=== PATIENT | male | born 1985 | race Caucasian/White ===

== ENCOUNTER 2023-01-26 13:59 | Inpatient (IN) | payer SELFPAY ==
[2023-01-26] VITALS (18 sets, daily range): BP systolic 92–127; BP diastolic 58–89; PULSE 76–91; RESP 16–20; TEMP 36.6–36.9; O2SAT 93–100; BMI 41.5; BMI 29.8; BMI 27.9
--- NOTE | 2023-01-26 13:29 | IR_ITS ---
APPROVED REPORT Patient Location: [facility]gent [facility] Layer: GABRIEL Parson RT (R) PROCEDURES Left heart catheterization Left ventriculogram Selective coronary angiogram Mechanical thrombectomy to the proximal dominant right coronary Drug-eluting stent deployment to the proximal dominant right coronary INDICATION Acute inferior lateral right ventricular ST elevation myocardial infarction, Coronary artery disease Informed consent was obtained prior to the procedure. COMPLICATIONS None Estimated Blood Loss: Less than 10 mls TECHNIQUE One percent lidocaine used to anesthetize the right anterior aspect of the wrist. The right radial artery was accessed via the Seldinger technique. An arterial cocktail using magnesium nitroglycerin and heparin and lidocaine was administered intra-arterially. 5000 units of heparin was administered intra-arterially on top of the 7000 that was administered at the primary referring facility the Poppa catheter was placed in the right coronary artery where angiography demonstrated a proximal thrombosis. A BMW wire was used to traverse the acute occlusion and the SampalRxra mechanical aspiration catheter was then advanced and removed large thrombus restoring MADHAV-3 flow. A 4 mm x 30 mm resolute Tk stent was deployed at 20 faisal reducing the critical stenosis to 0%. MADHAV 0 flow was present at the beginning of the procedure with MADHAV-3 flow at the end of the procedure. Following this the cardiac catheterization was then used to perform left heart catheterization left ventriculogram. A JL 3 guide catheter was used to perform left main coronary artery angiography. At the end the procedure the apparatus was removed the sheath was removed and hemostasis was achieved using TR banding patient was transferred to the postop putting in stable condition ANGIOGRAPHIC RESULTS The left main artery Normal The left anterior descending artery Is a small caliber vessel and has proximal 20 to 30% stenosis. The circumflex artery Nondominant and has 20 to 30% stenosis The right coronary artery Massively large dominant initially proximally thrombosed. Following drug-eluting stenting the right coronary artery is widely patent with the distal segment having smooth 20% stenoses and distal luminal irregularities in the massive posterior descending and posterior lateral branch The ETIENNE ventriculogram reveals Ejection fraction 45 to 50% with inferior hypokinesis however the LV gram was of poor quality The left ventricular end-diastolic pressure 15 mmHg IMPRESSION Critical proximal dominant right coronary artery occlusion as described above with successful mechanical thrombectomy followed by drug-eluting stenting reducing the stenosis to 0% Regional wall motion abnormality with indeterminate ejection fraction Borderline LVEDP PLAN 1. Brilinta 90 twice daily plus aspirin 81 mg daily 2. LDL less than 55 to be achieved with high intensity statin 3. Avoidance of tobacco products 4. Risk factor modification 5. Cardiac rehabilitation 6. Official echocardiogram to determine if ejection fraction is 35% or less which would then require LifeVest prior to discharge home 7. 48 hours of telemetry 8. Advance ARB and carvedilol once hemodynamically stable 9. Aggressive control of diabetes Electronically signed by : Nico Feng MD 01/26/2023 15:27:37
[2023-01-26 14:54] LABS: CATHL Activated Clotting Time > 400 SEC (74-125)
--- NOTE | 2023-01-26 15:06 | PC.NURSE ---
arrived by [facility] from [facility]
--- NOTE | 2023-01-26 15:07 | EXP.HP ---
History of Present Illness *Admission Date: 01/26/23 *Reason for visit:: Chief complaint: Chest pain *History of present illness: This is a 37-year-old male that is transition from [facility] emergency department to [facility] for cardiology services. He reports that he awoke this morning and started experiencing chest pain characterized as tight, burning and pressure. He reports the pain radiated to his back and left arm. He rated the pain as greater than 10 on a 1-10 pain scale. He reported associated nausea with subsequent vomiting and diaphoresis characterized as sweating. His identified his symptomatology and drove him to the [facility] ED where a triage ECG identified significant ST-T segment elevation and our cardiology service was contacted for transition of care. His [facility] ED labs were reviewed and personally interpreted as follows: White blood cell count 8.6, hemoglobin 16, hematocrit 46, platelet count 230. INR 0.99. Upon arrival to our facility he was taken emergently to the Cut Plug Packer and RCA disease was identified and treated. He is currently postprocedural and reports no further chest pain and I can breathe better. He is accompanied by his and sister. [facility] Medical History (Updated 01/26/23 @ 15:24 by Theo Heard MD) Coronary artery disease Diabetes Surgical History (Updated 01/26/23 @ 15:24 by Theo Heard MD) History of tonsillectomy History of tympanoplasty of right ear Family History (Updated 01/26/23 @ 15:25 by Theo Heard MD) Mother Diabetes Father Heart attack Social History (Updated 01/26/23 @ 15:26 by Theo Heard MD) Smoking Status: Never smoker alcohol intake: never substance use type: denies use current occupational status: employed Travel in the last 8 weeks: None household members: spouse housing: house lives independently: Yes marital status: number of children: 0 education level: high school current occupation: Patient nanny caregiver at [employer] diet: diabetic emigdio/christian: [employer] Review of Systems Review of Systems Review of systems:: pertinent systems reviewed and negative unless documented below *Cardiovascular Cardiovascular: Reports chest pain, Reports chest pain at rest, Reports dyspnea, Reports dyspnea on exertion and Reports lightheadedness *Respiratory Respiratory: Reports dyspnea and Reports dyspnea on exertion Meds Home Medications and Allergies Home Medications Medication Instructions Recorded Confirmed Type insulin glargine 100 unit/mL 15 unit SQ HS Diabetes 01/26/23 01/26/23 History subcutaneous solution (Lantus U-100 Insulin) New Prescriptions to Start Prescriptions: Allergies Allergy/AdvReac Type Severity Reaction Status Date / Time No Known Allergies Allergy Verified 01/26/23 13:37 Exam Data for Last 24 hours Vital signs and Labs for Last 24 Hours: Temp Pulse Resp BP Pulse Ox 98 F 83 20 101/69 L 96 01/26/23 14:43 01/26/23 14:51 01/26/23 14:51 01/26/23 15:01 01/26/23 15:01 Laboratory Results - last 24 hr 01/26/23 15:15: Activated Clotting Time > 400 H* I & O for Last 24 hours: Intake & Output 01/23/23 01/24/23 01/25/23 01/26/23 23:59 23:59 23:59 23:59 Weight 99.79 kg Constitutional Constitutional: no acute distress, average body habitus and cooperative *Routine HEENT Exam Head: Present normocephalic Eye: Present EOMI and PERRL ENT: Present mucous membranes moist *Routine Neck Exam Neck: Present supple; Absent JVD or lymphadenopathy *Routine Respiratory Exam Respiratory: Present CTA bilaterally, normal respiratory effort and symmetric chest movement *Routine Cardiovascular Exam Cardiovascular: Present RRR; Absent murmur *Routine Abdominal Exam Abdominal: Present soft and normoactive bowel sounds; Absent tenderness *Routine Rectal Exam Rectal:: deferred *Routine Genitalia Exam Ge
[2023-01-26 15:25] LABS: Coronavirus 19, PCR Not Detected (NotDetected); Influenza A, PCR Not Detected (NotDetected); Influenza B, PCR Not Detected (NotDetected)
[2023-01-26 16:31] LABS: POC Glucose,Bedside 356 (70-110)
[2023-01-26 20:12] LABS: POC Glucose,Bedside 304 (70-110)
--- NOTE | 2023-01-26 20:25 | PC.NURSE ---
He is A&Ox4. His spouse is at the bedside. He is sitting up in bed watching television. He refuses a bedtime snack. He denies pain. Right radial site DSG is C/D/I. He verbalizes understanding about not putting pressure on his RUE.
[2023-01-27] VITALS (7 sets, daily range): BP systolic 101–120; BP diastolic 62–79; PULSE 65–85; RESP 16–19; TEMP 36.3–37.1; O2SAT 98–100; BMI 27.3
[2023-01-27 06:26] LABS: POC Glucose,Bedside 197 (70-110)
[2023-01-27 07:18] LABS: Alanine Aminotransferase 50 U/L (12-78); Albumin Level 3.8 g/dl (3.5-5.0); Albumin/Globulin Ratio 1.5 (1.1-1.8); Alkaline Phosphatase 70 U/L (38-126); Anion Gap 7.8 mEq/L (5-15); Aspartate Amino Transferase 229 U/L (17-59); Bilirubin,Total 0.7 mg/dl (0.2-1.3); Blood Urea Nitrogen 20 mg/dl (9-20); Calcium 8.7 mg/dl (8.4-10.2); Carbon Dioxide 29 mmol/L (22.0-30.0); Chloride 100 mmol/L (98-107); Creatinine Clearance Estimated 184 mL/min (50-200); Estimated Glomerular Filt Rate 109 ml/min (>60); GFR (African American) 132 ML/MIN (>60); Globulin 2.5 g/dL (1.3-3.2); Glucose 239 mg/dl (74-100); Magnesium 2.1 mg/dl (1.6-2.3); Potassium 3.8 mmoL/L (3.5-5.1); Sodium 133 mmol/L (136-145); Total Protein,Serum 6.3 g/dl (6.3-8.2)
[2023-01-27 08:41] LABS: Basophils # 0.2 K/mm3 (0-0.2); Basophils % 2.2 % (0.1-2.0); Eosinophils # 0.1 K/mm3 (0.0-0.4); Eosinophils % 1.2 % (0.1-12.0); Hematocrit 43.6 % (42.0-52.0); Hemoglobin 14.2 g/dL (14.1-18.0); Lymphocytes # 2.1 K/mm3 (0.7-4.5); Lymphocytes % 20.8 % (10-50); Mean Corpuscular HGB Conc 32.6 g/dL (31.8-35.4); Mean Corpuscular Volume 85.9 fl (80-94); Mean Platelet Volume 8.7 fl (7.4-10.4); Monocytes # 0.6 K/mm3 (0.1-1.0); Monocytes % 5.5 % (1.7-9.3); Neutrophils # 7.2 K/mm3 (1.8-7.8); Neutrophils % 70.4 % (37.0-80.0); Platelet Count 230 K/mm3 (142-424); Red Blood Count 5.07 M/mm3 (4.60-6.20); Red Cell Distribution Width 14.1 % (11.5-17.5); White Blood Count 10.2 K/mm3 (4.8-10.8)
[2023-01-27 10:46] LABS: Hemoglobin A1C 9.9 % (4.0-6.0)
[2023-01-27 12:24] LABS: POC Glucose,Bedside 281 (70-110)
--- NOTE | 2023-01-27 13:08 | PC.NURSE ---
report received form Denise HOOD
--- NOTE | 2023-01-27 13:44 | PC.NURSE ---
Report given to Annmarie Alarcon RN at 1300
--- NOTE | 2023-01-27 15:21 | EXP.PN ---
Subjective *Date: 01/27/23 *Time: 15:21 Interval history: Date of service January 27, 2023 The patient reports no acute events overnight. He reports that he is feeling better. His is at bedside. He is inquiring about discharge home. He reports no further chest pain, dyspnea or palpitations. Nursing staff report that he remains afebrile with stable vital signs and saturating appropriately on room air. We have reviewed and discussed his morning labs and I personally interpreted his labs as follows: CBC with normal white blood cell count stable hemoglobin and platelets. Electrolytes are normal. BUN is 20 and creatinine 0.8. His glucose is elevated. His hemoglobin A1c is 9.9%. Exam Data for Last 24 hours Vital signs and Labs for Last 24 Hours: Temp Pulse Resp BP Pulse Ox 98.2 F 73 16 101/62 L 100 01/27/23 11:49 01/27/23 11:49 01/27/23 11:49 01/27/23 11:49 01/27/23 11:49 Laboratory Results - last 24 hr 01/26/23 15:18: SARS-CoV-2 (PCR) Not detected, Influenza A Untype (PCR) Not detected, Influenza Type B (PCR) Not detected 01/26/23 16:18: POC Glucose 356 H* 01/26/23 19:56: POC Glucose 304 H* 01/27/23 05:27: POC Glucose 197 H 01/27/23 06:36: WBC 10.2, RBC 5.07, Hgb 14.2, Hct 43.6, MCV 85.9, MCH 28.0, MCHC 32.6, RDW 14.1, Plt Count 230, MPV 8.7, Neut % (Auto) 70.4, Lymph % (Auto) 20.8, Ross % (Auto) 5.5, Eos % (Auto) 1.2, Baso % (Auto) 2.2 H, Neut # (Auto) 7.2, Lymph # (Auto) 2.1, Ross # (Auto) 0.6, Eos # (Auto) 0.1, Baso # (Auto) 0.2 01/27/23 06:36: Sodium 133 L, Potassium 3.8, Chloride 100, Carbon Dioxide 29, Anion Gap 7.8, BUN 20, Creatinine 0.80, Estimated Creat Clear 184, Estimated GFR 109, Est GFR ( Amer) 132, Glucose 239 H, Calcium 8.7, Magnesium 2.1, Total Bilirubin 0.7, AST 229 H, ALT 50, Alkaline Phosphatase 70, Total Protein 6.3, Albumin 3.8, Globulin 2.5, Albumin/Globulin Ratio 1.5 01/27/23 06:36: Hemoglobin A1c 9.9 H 01/27/23 12:14: POC Glucose 281 H I & O for Last 24 hours: Intake & Output 01/24/23 01/25/23 01/26/23 01/27/23 23:59 23:59 23:59 23:59 Intake Total 360 / 360 860 / 860 Output Total 0 / 0 0 / 0 Balance 360 / 360 860 / 860 Weight 104.014 kg 101.775 kg Constitutional Constitutional: no acute distress, average body habitus and cooperative *Routine HEENT Exam Head: Present normocephalic Eye: Present EOMI and PERRL ENT: Present mucous membranes moist *Routine Neck Exam Neck: Present supple; Absent lymphadenopathy *Routine Respiratory Exam Respiratory: Present CTA bilaterally, normal respiratory effort and symmetric chest movement *Routine Cardiovascular Exam Cardiovascular: Present RRR *Routine Abdominal Exam Abdominal: Present soft and normoactive bowel sounds; Absent tenderness *Routine Extremities Exam Extremities: Present full ROM, pulses intact and normal capillary refill; Absent cyanosis, clubbing or edema *Routine Skin Exam Skin: Present warm; Absent rash *Routine Neurological Exam Neurological: Present alert, oriented X3, moving all extremities, vision grossly intact, hearing grossly intact and normal speech; Absent sensory deficit or motor deficit Routine Psychiatric Exam Psychiatric: Present normal affect, normal thought process, cooperative, good insight and good judgment Assessment and Plan *Assessment and plan (1) STEMI (ST elevation myocardial infarction): Status: Acute Category: Medical Code(s): I21.3 - ST elevation (STEMI) myocardial infarction of unspecified site (2) Coronary artery disease: Status: Acute Category: Medical Code(s): I25.10 - Atherosclerotic heart disease of [place] coronary artery without angina pectoris (3) Diabetes: Status: Acute Category: Medical Code(s): E11.9 - Type 2 diabetes mellitus without complications Plan This is a 37-year-old male that presented to [facility] emergency department with chest pain and was identified with a STEMI. His risk factors in
[2023-01-27 16:41] LABS: POC Glucose,Bedside 237 (70-110)
[2023-01-27 21:09] LABS: POC Glucose,Bedside 228 (70-110)
[2023-01-28] VITALS (9 sets, daily range): BP systolic 87–120; BP diastolic 51–79; PULSE 63–81; RESP 17–19; TEMP 36.4–37.2; O2SAT 90–100; BMI 27.3
[2023-01-28 06:44] LABS: POC Glucose,Bedside 213 (70-110)
--- NOTE | 2023-01-28 10:10 | PC.NURSE ---
notified of pt hypotension after medication administration. pt is asymptomatic @ this point. WIll continue to monitor
[2023-01-28 11:34] LABS: POC Glucose,Bedside 225 (70-110)
--- NOTE | 2023-01-28 12:34 | EXP.PN ---
Subjective *Date: 01/28/23 *Time: 12:34 Interval history: Date of service January 28, 2023 The patient reports no acute events overnight. No further chest pain is reported. He remains afebrile with stable vital signs and saturating appropriately on room air. His echocardiogram is pending. Exam Data for Last 24 hours Vital signs and Labs for Last 24 Hours: Temp Pulse Resp BP Pulse Ox 98.4 F 68 18 116/70 100 01/28/23 11:26 01/28/23 11:26 01/28/23 11:26 01/28/23 11:26 01/28/23 11:26 Laboratory Results - last 24 hr 01/27/23 16:21: POC Glucose 237 H 01/27/23 20:54: POC Glucose 228 H 01/28/23 06:33: POC Glucose 213 H 01/28/23 11:21: POC Glucose 225 H I & O for Last 24 hours: Intake & Output 01/25/23 01/26/23 01/27/23 01/28/23 23:59 23:59 23:59 23:59 Intake Total 360 / 360 1100 / 1100 480 / 480 Output Total 0 / 0 0 / 0 Balance 360 / 360 1100 / 1100 480 / 480 Weight 104.014 kg 101.775 kg 101.775 kg Constitutional Constitutional: no acute distress, average body habitus and cooperative *Routine HEENT Exam Head: Present normocephalic Eye: Present EOMI and PERRL ENT: Present mucous membranes moist *Routine Neck Exam Neck: Present supple; Absent lymphadenopathy *Routine Respiratory Exam Respiratory: Present CTA bilaterally, normal respiratory effort and symmetric chest movement *Routine Cardiovascular Exam Cardiovascular: Present RRR *Routine Abdominal Exam Abdominal: Present soft and normoactive bowel sounds; Absent tenderness *Routine Extremities Exam Extremities: Present full ROM, pulses intact and normal capillary refill; Absent cyanosis, clubbing or edema *Routine Skin Exam Skin: Present warm; Absent rash *Routine Neurological Exam Neurological: Present alert, oriented X3, moving all extremities, vision grossly intact, hearing grossly intact and normal speech; Absent sensory deficit or motor deficit Routine Psychiatric Exam Psychiatric: Present normal affect, normal thought process, cooperative, good insight and good judgment Assessment and Plan *Assessment and plan (1) STEMI (ST elevation myocardial infarction): Status: Acute Category: Medical Code(s): I21.3 - ST elevation (STEMI) myocardial infarction of unspecified site (2) Coronary artery disease: Status: Acute Category: Medical Code(s): I25.10 - Atherosclerotic heart disease of [place] coronary artery without angina pectoris (3) Diabetes: Status: Acute Category: Medical Code(s): E11.9 - Type 2 diabetes mellitus without complications Plan This is a 37-year-old male that presented to [facility] emergency department with chest pain and was identified with a STEMI. His risk factors include uncontrolled diabetes 1.5 treated as type I. He was transitioned to our facility and underwent left heart cath which identified interventional disease with stent deployment. Problems addressed are as follows: STEMI Telemetry monitoring Left heart cath with drug-eluting stent deployment (01/26/2023) Heart cath anticoagulation noted Antiplatelet therapy P2 Y12 inhibitor therapy High-dose statin therapy Beta-edyta therapy ARB therapy Cardiac diet Echocardiogram pending Trending labs and inflammatory markers Parenterally administered controlled substance as needed for comfort care Coronary artery disease Identified on left heart cath today Risk factors reviewed Dual antiplatelet therapy Statin therapy Beta-edyta therapy ARB therapy Diabetes Hemoglobin A1c 9.9% Routine blood sugar monitoring Basal insulin therapy Sliding scale insulin therapy Carbohydrate controlled diet VTE prophylaxis: Lovenox CODE STATUS: Full code GI prophylaxis: PPI therapy The patient is hospitalized day 1 with above diagnoses complicated by his uncontrolled diabetes. We appreciate network pricing consultant evaluation, procedural intervention and ongoing recommendations. Case management is assisting with nex
[2023-01-28 17:31] LABS: POC Glucose,Bedside 255 (70-110)
[2023-01-28 20:55] LABS: POC Glucose,Bedside 273 (70-110)
[2023-01-29] VITALS: BP 113/72; PULSE 80; PULSE 83; RESP 17; TEMP 36.9; O2SAT 99
--- NOTE | 2023-01-29 03:56 | PC.NURSE ---
Pt has not voiced any c/o to staff. Ambulating to BR independently. at bedside.
[2023-01-29 04:00] VITALS: BP 106/70; PULSE 80; PULSE 82; RESP 17; TEMP 36.6; O2SAT 99; BMI 29.1
[2023-01-29 06:13] LABS: POC Glucose,Bedside 240 (70-110)
[2023-01-29 08:00] VITALS: BP 110/61; PULSE 90; PULSE 92; RESP 20; TEMP 36.9; O2SAT 96
--- NOTE | 2023-01-29 11:05 | DIET.NUTRFU ---
Patient ready for discharge, he has been tolerating cardiac and diabetic diet. Upon visit patient declined education, he reports he has been following diabetic/cardiac at home. He also reports he regularly tests his BS at home. He had no questions or concerns
--- NOTE | 2023-01-29 11:17 | EXP.CARD.CON ---
History of Present Illness History of Present Illness Consult date: 01/29/23 Requesting physician: Theo Heard Consult reason: chest pain Chief complaint: chest pain History of present illness: 37-year-old white male with past medical history of coronary artery disease and diabetes presented to [facility] emergency department on 01/26/2023 with complaint of chest pain. Evaluation upon arrival showed a stemi on EKG with ST segment elevation in 2 3 aVF V3 V4 V5 and V6 with associated reciprocal changes. Patient was transferred to this facility and taken directly to the foundry laborer coreroom where he underwent successful mechanical thrombectomy of proximal dominant RCA followed by ALEE, see offical foundry laborer coreroom report below. Patient was monitor in hospital for 48 hours post cath and for further evaluation of EF via Echo. Patient reports no further episodes of chest pain, endorses mild soa. A preliminary Echo shows and estimated EF of 50% with mild MR. [facility] 01/26/2023 ANGIOGRAPHIC RESULTS The left main artery Normal The left anterior descending artery Is a small caliber vessel and has proximal 20 to 30% stenosis. The circumflex artery Nondominant and has 20 to 30% stenosis The right coronary artery Massively large dominant initially proximally thrombosed.? Following drug-eluting stenting the right coronary artery is widely patent with the distal segment having smooth 20% stenoses and distal luminal irregularities in the massive posterior descending and posterior lateral branch The ETIENNE ventriculogram reveals Ejection fraction 45 to 50% with inferior hypokinesis however the LV gram was of poor quality The left ventricular end-diastolic pressure 15 mmHg IMPRESSION Critical proximal dominant right coronary artery occlusion as described above with successful mechanical thrombectomy followed by drug-eluting stenting reducing the stenosis to 0% Regional wall motion abnormality with indeterminate ejection fraction Borderline LVEDP PLAN 1. Brilinta 90 twice daily plus aspirin 81 mg daily 2. LDL less than 55 to be achieved with high intensity statin 3. Avoidance of tobacco products 4. Risk factor modification 5. Cardiac rehabilitation 6. Official echocardiogram to determine if ejection fraction is 35% or less which would then require LifeVest prior to discharge home 7. 48 hours of telemetry 8. Advance ARB and carvedilol once hemodynamically stable 9. Aggressive control of diabetes [facility] Disclaimer: The information contained in this section may have been updated after the patient was seen, as this information can be updated by other users. Medical History (Updated 01/26/23 @ 15:24 by Theo Heard MD) Coronary artery disease Diabetes Surgical History (Updated 01/26/23 @ 15:24 by Theo Heard MD) History of tonsillectomy History of tympanoplasty of right ear Family History (Updated 01/26/23 @ 15:25 by Theo Heard MD) Mother Diabetes Father Heart attack Social History (Updated 01/26/23 @ 15:26 by Theo Heard MD) Smoking Status: Never smoker alcohol intake: never substance use type: denies use current occupational status: employed Travel in the last 8 weeks: None household members: spouse housing: house lives independently: Yes marital status: number of children: 0 education level: high school current occupation: Patient home health care provider at [employer] diet: diabetic emigdio/rastafari: [employer] Review of Systems Review of Systems Review of systems:: pertinent systems reviewed and negative unless documented below Exam Data for Last 24 hours Vital signs and Labs for Last 24 Hours: Temp Pulse Resp BP Pulse Ox 98.5 F 92 H 20 110/61 96 01/29/23 08:00 01/29/23 08:00 01/29/23 08:00 01/29/23 08:00 01/29/23 08:00 Laboratory Results - last 24 hr 01/28/23 11:21: POC Glucose 225 H 01/28/23 17:20: POC Glucose 255 H 01/28/23 20:44: POC Glucose 273 H 01/29/23 06:01: POC Glucose 240 H
--- NOTE | 2023-01-29 11:19 | EXP.DC.SUM ---
General Admission date:: 01/26/23 Discharge date: 01/29/23 HPI HPI HPI: This is a 37-year-old male that is transition from [facility] emergency department to [facility] for cardiology services. He reports that he awoke this morning and started experiencing chest pain characterized as tight, burning and pressure. He reports the pain radiated to his back and left arm. He rated the pain as greater than 10 on a 1-10 pain scale. He reported associated nausea with subsequent vomiting and diaphoresis characterized as sweating. His identified his symptomatology and drove him to the [facility] ED where a triage ECG identified significant ST-T segment elevation and our cardiology service was contacted for transition of care. His [facility] ED labs were reviewed and personally interpreted as follows: White blood cell count 8.6, hemoglobin 16, hematocrit 46, platelet count 230. INR 0.99. Upon arrival to our facility he was taken emergently to the Desk Director and RCA disease was identified and treated. He is currently postprocedural and reports no further chest pain and I can breathe better. He is accompanied by his and sister. Hospital Course Hospital Course Hospital Course: The patient presented to the medical floor on telemetry after his cardiac catheterization with resolved chest pain. He was maintained on dual antiplatelet therapy, high-dose statin therapy, beta-edyta and ARB therapy. His glucose was trended and identified improvement. An echocardiogram was performed on day of discharge which identified an ejection fraction greater than 45%. He understands the importance of appropriate blood sugar control and medication compliance. Cardiology has scheduled a follow-up appointment and he will see his PCP in a few days. I have recommended follow-up with his competitive athlete to discussed his hemoglobin A1c 9.9% and now identified coronary artery disease. I spent 35 minutes in [id number] time with the patient and nursing staff concerning the discharge process. We discussed the admitting diagnoses and hospital course. We discussed identified improvement and the patient's desire to be discharged. We reviewed inpatient studies and imaging. The patient voiced understanding on the importance of follow-up with his primary care provider, general assistant and competitive athlete. The patient plans to be compliant with the medication regimen prescribed and follow-up appointments. He understands that he can return to the emergency department with any sudden changes or concerns. Exam Data for Last 24 hours Vital signs and Labs for Last 24 Hours: Temp Pulse Resp BP Pulse Ox 98.5 F 92 H 20 110/61 96 01/29/23 08:00 01/29/23 08:00 01/29/23 08:00 01/29/23 08:00 01/29/23 08:00 Laboratory Results - last 24 hr 01/28/23 11:21: POC Glucose 225 H 01/28/23 17:20: POC Glucose 255 H 01/28/23 20:44: POC Glucose 273 H 01/29/23 06:01: POC Glucose 240 H I & O for Last 24 hours: Intake & Output 01/26/23 01/27/23 01/28/23 01/29/23 23:59 23:59 23:59 23:59 Intake Total 360 / 360 1100 / 1100 960 / 960 360 / 360 Output Total 0 / 0 0 / 0 400 / 500 300 / 300 Balance 360 / 360 1100 / 1100 560 / 460 60 / 60 Weight 104.014 kg 101.775 kg 101.775 kg 108.545 kg Constitutional Constitutional: no acute distress, average body habitus and cooperative *Routine HEENT Exam Head: Present normocephalic Eye: Present EOMI and PERRL ENT: Present mucous membranes moist *Routine Neck Exam Neck: Present supple; Absent lymphadenopathy *Routine Respiratory Exam Respiratory: Present CTA bilaterally, normal respiratory effort and symmetric chest movement *Routine Cardiovascular Exam Cardiovascular: Present RRR *Routine Abdominal Exam Abdominal: Present soft and normoactive bowel sounds; Absent tenderness *Routine Extremities Exam Extremities: Present full ROM, pulses intact and normal capillary refill; Absent cyanosis, clubbing or
--- NOTE | 2023-01-29 11:40 | HMH.PHAINT1 ---
Pharmacy Intervention Comments: Discussed discharge medications with patient. Patient verbalized understanding and had no questions at this time
--- NOTE | 2023-01-30 14:23 | CARE MANAGER ---
Attempted post-discharge phone interview, no answer.
== END 2023-01-29 12:26 | disposition home or self-care (01) | DRG 249 ==
PROVIDERS: Internal Medicine; Admitting Provider Family Medicine; PCP Family Medicine; Visit Provider Family Medicine
PROC: 02H03DZ Insertion of Intraluminal Device into Coronary Artery, One Artery, Percutaneous Approach (ICD-10-PCS; principal; 2023-01-26 13:35)
DX: I21.19 ST elevation (STEMI) myocardial infarction involving other coronary artery of inferior wall (principal); I25.10 Atherosclerotic heart disease of native coronary artery without angina pectoris; E11.65 Type 2 diabetes mellitus with hyperglycemia; Z79.4 Long term (current) use of insulin
CPT/HCPCS: C9600; 80053; 82962; 83036; 83735; 85025; 85347; 92928; 93306; 93458; 99152; C1725; C1760; C1769; C1876; C9803; J1644; Q9967; U0003; U0005

== ENCOUNTER 2023-04-17 09:59 | Outpatient (RCR) | payer BC, SELFPAY | END 2023-05-14 10:45 | disposition home or self-care (01) | LOC: PT 09:59 | PROVIDERS: Visit Provider Physician Assistant | DX: I25.10 Atherosclerotic heart disease of native coronary artery without angina pectoris (principal); I10 Essential (primary) hypertension; E78.5 Hyperlipidemia, unspecified; E11.9 Type 2 diabetes mellitus without complications; Z79.4 Long term (current) use of insulin | CPT/HCPCS: 93798 ==

== ENCOUNTER → 2023-07-03 11:57 | Outpatient (CLI) | payer BC, SELFPAY ==
--- NOTE | 2023-07-03 12:02 | NM_ITS ---
APPROVED REPORT Exam: Nuclear Stress Test Indication: chest pain Patient Location: Outpatient Stress Tech: Emmy Weaver [place] Tech:GABRIEL Ozuna RT (R)(N)(M) Ht: 6 ft 0 in Wt: 230 lbs HR: 91 bpm BP: 134/96 mmHg BSA: 2.26 m2 Rhythm: NSR TID: 1.08 History: chest pain Procedure: Patient exercised on Bro protocol 6:12 minutes and sec, resting heart rate 91 bpm, resting blood pressure 134/96 mmHg, with exercise maximum heart rate achived was 176 bpm which is 96 % of the maximum predicted heart rate and blood pressure was 190/80 mmHg. Test was stopped due to fatigue. Patient denied any complaint of chest pain. Patient has poor exercise capacity, achieved 7.0 METs of workload on treadmill, the blood pressure response to exercise was normal. Cardiac Stress and Resting SPECT Images: Cardiac Stress and Resting SPECT images were obtained using technetium 99m Myoview 30.1 mCi stress and 10.98 mCi at rest. Resting and stress imaging in both supine and prone positions demonstrate a large sized, severe, predominantly fixed perfusion defect in the inferior and inferoseptal LV flores, from the base and extending distally towards the inferoapical region. There is a minimal region of surrounding reversibility. Gated imaging demonstrates mild reduction in global LV systolic function. There is moderate hypokinesis in the inferior LV wall and mild hypokinesis of the inferolateral LV wall. LVEF is calculated at 49%. Conclusion: Large sized, severe, predominantly fixed perfusion defect in the inferior and inferoseptal LV flores, from the base and extending distally towards the inferoapical region. There is a minimal region of surrounding reversibility. Findings are suggestive of prior infarct with surrounding regions of reversible ischemia. Gated imaging demonstrates mild reduction in global LV systolic function. There is moderate hypokinesis in the inferior LV wall and mild hypokinesis of the inferolateral LV wall. LVEF is calculated at 49%. Electronically signed by : Faina Mendez, 07/03/2023 19:36:31
--- NOTE | 2023-07-03 15:00 | CA_ITS ---
APPROVED REPORT Exam: Exercise Treadmill Technologist: Unique Ledbetter, Ht: 6 ft 0 in Wt: 249 lbs BSA: 2.34 m2 HR: 88 bpm BP: 134/96 mmHg Rhythm: NSR Indications: Chest pain Stress Test Details Test: Bro HR Resting HR: 91 bpm Max Heart Rate (APMHR): 184 bpm Max HR Achieved: 176 bpm Target HR (85% APMHR): 156 bpm % of APMHR: 96 Recovery HR: 106 bpm HR response to stress: Normal HR response to stress BP Resting BP: 134.0/96.0 mmHg Max BP: 190.0/80.0 mmHg Recovery BP: 143.0/97.0 mmHg BP response to stress: Normal blood pressure response to stress. ECG Resting ECG: Normal sinus rhythm, T wave changes in the inferior leads Stress ECG: No ST changes Arrhythmia: PVCs Recovery ECG: No ST changes Recovery Arrhythmia: None Clinical Exercise duration: 06:12 min Highest Stage Achieved: III Exercise capacity: 7.0 METs Overall Exercise Capacity for Age: Poor Stress ECG Conclusion The patient was able to exercise for a total of 6 minutes, 12 seconds. He achieved a total of 7 METS. He has poor exercise capacity compared to age and sex matched peers. He has normal HR and BP response to exercise. Max HR: 176 % of PM: 96 Max BP: 190/80 METs: 7 Test stopped due to: Dyspnea Symptoms: Dyspnea Arrhythmias/Ectopy: PVCs ST-T Changes: No significant ST changes Conclusion: Poor exercise capacity. Normal EKG response to exercise. Myoview images are reported separately. Test Summary REST . . . . . . . Sitting REST 02:11 0.0 0.0 91 . 134/ 96 . . Stage 1 01:00 10.0 1.7 111 . . . . Stage 1 02:00 10.0 1.7 128 . . . . Stage 1 03:00 10.0 1.7 135 . 180/ 80 . . Stage 2 01:00 12.0 2.5 144 . . . . Stage 2 02:00 12.0 2.5 155 . 190/ 80 . . Stage 2 . . . . . . . Myoview Injected Stage 2 03:00 12.0 2.5 161 . 190/ 80 . . Stage 3 00:12 14.0 3.4 164 . . . Stop exercise at 06:12 RECOVERY 01:00 0.0 0.0 151 . 180/ 90 . . RECOVERY 02:00 0.0 0.0 127 . 176/109 . . RECOVERY 03:00 0.0 0.0 113 . 166/ 97 . . RECOVERY 04:00 0.0 0.0 106 . 166/ 97 . . RECOVERY 04:31 0.0 0.0 107 . 143/ 97 . . Electronically signed by : Faina Mendez, 07/03/2023 19:30:47
== END ==
PROVIDERS: PCP Family Medicine; Visit Provider Nurse Practitioner Family
DX: R07.89 Other chest pain (principal); I25.10 Atherosclerotic heart disease of native coronary artery without angina pectoris; I10 Essential (primary) hypertension; E78.5 Hyperlipidemia, unspecified; E11.9 Type 2 diabetes mellitus without complications; Z79.4 Long term (current) use of insulin
CPT/HCPCS: 78452; 93017; A9502

== ENCOUNTER 2023-08-24 08:14 | Day surgery (SDC) | payer BC, SELFPAY ==
[2023-08-24] VITALS (12 sets, daily range): BP systolic 99–149; BP diastolic 60–88; PULSE 74–85; RESP 18–20; TEMP 36.9; O2SAT 95–98; BMI 34.5
--- NOTE | 2023-08-24 07:18 | IR_ITS ---
APPROVED REPORT Patient Location: Outpatient PROCEDURES Left heart catheterization Left ventriculogram Selective coronary angiogram Drug-eluting stent deployment to the distal dominant right coronary artery extending into the proximal posterior descending artery INDICATION Coronary artery disease, Angina pectoris, Abnormal Myoview Informed consent was obtained prior to the procedure. COMPLICATIONS NONE Estimated Blood Loss: LESS THAN 10 ML TECHNIQUE One percent lidocaine used to anesthetize the right anterior aspect of the wrist. The right radial artery was accessed via the Seldinger technique. A 6 Cymro sheath was placed in the right radial artery. 2.5 mg of Verapamil, 800 mcg of nitroglycerin, 1mg Lidocaine and 5000 U Heparin were given through the arterial sheath. The papa catheter was also used to perform left heart catheterization, left ventriculogram and selective coronary angiogram. At the end of the diagnostic angiogram therapeutic heparin was administered giving a therapeutic ACT and a JL 3 guide catheter was placed in the right coronary artery and a Choice PT extra-support wire was placed distally. A 3 mm x 38 mm P[place] frontier stent was placed in the distal right coronary artery extending into the proximal posterior descending artery and deployed at 12 and then 14 faisal. A 3.5 x 20 mm noncompliant balloon was deployed at 20 faisal throughout the right coronary artery portion of the 3 mm stent to post dilate. MADHAV-3 flow was present before and after the procedure. At the end of the procedure the apparatus was removed the sheath was removed hemostasis was achieved using TR banding patient was transferred the postop holding in stable addition ANGIOGRAPHIC RESULTS The left main artery Normal The left anterior descending artery There is a small caliber vessel both in the proximal and mid segment. The LAD does not approach the apex. The proximal portion of the LAD has a 50% stenosis proximal to the first septal gear lapping machine operator. The LAD does not go of off any diagonal arteries. The mid LAD then has an additional 50% long stenosis and a vessel which is 2.25 mm in diameter The circumflex artery Gives rise to a large ramus intermedius which has mid vessel 30% stenoses. The circumflex artery itself is a small system with diffuse 20 to 30% stenoses The right coronary artery Is a large dominant vessel with an extremely large posterior descending artery which wraps the apex and supplies a portion of the anterior wall. The right coronary artery has stents in the proximal segment are widely patent with 30% distal stenoses which then extends into a focal 80% stenosis in the proximal posterior descending artery. A large posterior lateral branch is patent The ETIENNE ventriculogram reveals Preserved at 60% The left ventricular end-diastolic pressure 10 mmHg IMPRESSION Coronary disease as described above most notably with moderate disease in a small caliber LAD which does not give off diagonal arteries which at this point I feel is not appropriate for stenting and should be managed medically Severe disease in a large posterior descending artery which correlates to the abnormal stress test with successful stenting from the posterior descending artery back into the mid to distal right coronary artery with 1 drug-eluting stent Preserved ejection fraction Normal left ventricular end-diastolic pressure PLAN 1. Dual antiplatelet therapy 2. Cardiac rehabilitation 3. Avoidance of tobacco product 4. Recommend medical management for the LAD. While this could be stented the small caliber of the vessel makes medical management much more desirable 5. LDL less than 55 to be achieved with high intensity statin Electronically signed by : Nico Feng MD 08/24/2023 10:39:18
[2023-08-24 08:58] LABS: Basophils # 0.1 K/mm3 (0-0.2); Basophils % 0.8 % (0.1-2.0); Eosinophils # 0.2 K/mm3 (0.0-0.4); Eosinophils % 1.9 % (0.1-12.0); Hematocrit 46.9 % (42.0-52.0); Hemoglobin 15.7 g/dL (14.1-18.0); Lymphocytes % 22.4 % (10-50); Mean Corpuscular HGB Conc 33.5 g/dL (31.8-35.4); Mean Corpuscular Volume 86.7 fl (80-94); Mean Platelet Volume 8.8 fl (7.4-10.4); Monocytes # 0.6 K/mm3 (0.1-1.0); Neutrophils # 5.9 K/mm3 (1.8-7.8); Neutrophils % 67.9 % (37.0-80.0); Platelet Count 224 K/mm3 (142-424); Red Blood Count 5.41 M/mm3 (4.60-6.20); Red Cell Distribution Width 13.8 % (11.5-17.5); White Blood Count 8.8 K/mm3 (4.8-10.8)
[2023-08-24 09:07] LABS: Anion Gap 13.5 mEq/L (5-15); Blood Urea Nitrogen 20 mg/dl (9-20); Calcium 9.2 mg/dl (8.4-10.2); Carbon Dioxide 26 mmol/L (22.0-30.0); Chloride 100 mmol/L (98-107); Creatinine Clearance Estimated 236 mL/min (50-200); Estimated Glomerular Filt Rate 127 ml/min (>60); GFR (African American) 154 ML/MIN (>60); Glucose 354 mg/dl (74-100); Potassium 4.5 mmoL/L (3.5-5.1); Sodium 135 mmol/L (136-145)
[2023-08-24 12:28] LABS: CATHL Activated Clotting Time 367 SEC (74-125)
== END 2023-08-24 14:05 | disposition home or self-care (01) ==
PROVIDERS: PCP Family Medicine; Visit Provider Internal Medicine
DX: I25.118 Atherosclerotic heart disease of native coronary artery with other forms of angina pectoris (principal); I10 Essential (primary) hypertension; E78.5 Hyperlipidemia, unspecified; E11.9 Type 2 diabetes mellitus without complications; Z95.5 Presence of coronary angioplasty implant and graft; Z79.01 Long term (current) use of anticoagulants; Z79.4 Long term (current) use of insulin; Z79.899 Other long term (current) drug therapy
CPT/HCPCS: 80048; 85025; 85347; 92928; 93458; 99152; 99153; C1725; C1760; C1769; C1874; C9600; J1644; Q9967

== ENCOUNTER 2023-12-05 09:05 | Outpatient (CLI) | payer BC, SELFPAY ==
[2023-12-07 08:55] LABS: LDL-P 342
[2023-12-07 08:56] LABS: LDL-C 29
[2023-12-07 08:57] LABS: HDL-C 31; Triglycerides 188
[2023-12-07 08:58] LABS: Cholesterol, Total 90
[2023-12-07 09:01] LABS: LDL Size 19.7
[2023-12-07 09:03] LABS: LP-IR Score 80
== END 2023-12-05 23:59 ==
LOC: LAB 09:06
PROVIDERS: PCP Family Medicine; Visit Provider Physician Assistant
DX: E11.9 Type 2 diabetes mellitus without complications (principal); E78.5 Hyperlipidemia, unspecified; I11.9 Hypertensive heart disease without heart failure; I25.10 Atherosclerotic heart disease of native coronary artery without angina pectoris; Z95.5 Presence of coronary angioplasty implant and graft; Z79.4 Long term (current) use of insulin; Z79.85 Long-term (current) use of injectable non-insulin antidiabetic drugs
CPT/HCPCS: 83704

== ENCOUNTER 2025-02-18 11:40 | Outpatient (CLI) | payer MEDICARE, SELFPAY ==
[2025-02-18 12:44] LABS: Basophils % 0.6 % (0.1-2.0); Eosinophils # 0.1 K/mm3 (0.0-0.4); Eosinophils % 1.3 % (0.1-12.0); Hematocrit 41.8 % (42.0-52.0); Hemoglobin 14.7 g/dL (14.1-18.0); Lymphocytes # 1.3 K/mm3 (0.7-4.5); Lymphocytes % 17.9 % (10-50); Mean Corpuscular HGB Conc 35.2 g/dL (31.8-35.4); Mean Corpuscular Hemoglobin 28.8 pg (27.0-31.2); Mean Platelet Volume 10.9 fl (7.4-10.4); Monocytes # 0.5 K/mm3 (0.1-1.0); Monocytes % 7.4 % (1.7-9.3); Neutrophils # 5.2 K/mm3 (1.8-7.8); Neutrophils % 72.4 % (37.0-80.0); Platelet Count 243 K/mm3 (142-424); Red Cell Distribution Width 12.9 % (11.5-17.5); White Blood Count 7.2 K/mm3 (4.8-10.8)
[2025-02-18 13:29] LABS: Alanine Aminotransferase 25 U/L (12-78); Albumin Level 4.6 g/dl (3.5-5.0); Alkaline Phosphatase 77 U/L (38-126); Anion Gap 15.6 mEq/L (5-15); Aspartate Amino Transferase 24 U/L (17-59); Bilirubin,Direct 0.3 mg/dl (0.0-0.4); Bilirubin,Indirect 0.8 mg/dL (0.0-0.9); Bilirubin,Total 1.1 mg/dl (0.2-1.3); Bilirubin,Unconjugated 0.9 mg/dL (0.0-1.1); Blood Urea Nitrogen 23 mg/dl (9-20); Carbon Dioxide 24 mmol/L (22.0-30.0); Chloride 98 mmol/L (98-107); Chol/HDL Ratio 3.4 (1-3.5); Cholesterol 112 mg/dl (140-200); Estimated Glomerular Filt Rate 126 ml/min (>60); GFR (African American) 153 ML/MIN (>60); Glucose 357 mg/dl (74-100); HDL Cholesterol 33 mg/dl (40-60); Magnesium 1.9 mg/dl (1.6-2.3); Potassium 4.6 mmoL/L (3.5-5.1); Sodium 133 mmol/L (136-145); Total Protein,Serum 6.9 g/dl (6.3-8.2); Triglycerides 195 mg/dl (30-150); VLDL Cholesterol 39 mg/dL (0-40)
[2025-02-18 13:40] LABS: Direct LDL Cholesterol 42.29 mg/dL (100-129)
[2025-02-18 13:50] LABS: Free T4 (Free Thyroxine) 1.52 ng/dl (0.78-2.19)
== END 2025-02-18 23:59 | disposition home or self-care (01) ==
LOC: LAB 11:41
PROVIDERS: PCP Family Medicine; Visit Provider Nurse Practitioner
DX: R53.83 Other fatigue (principal); I10 Essential (primary) hypertension; E78.5 Hyperlipidemia, unspecified; E13.9 Other specified diabetes mellitus without complications; I25.118 Atherosclerotic heart disease of native coronary artery with other forms of angina pectoris
CPT/HCPCS: 36415; 80048; 80061; 80076; 83735; 84439; 84443; 85025

== ENCOUNTER 2025-07-09 11:43 | Outpatient (CLI) | payer OTHER, SELFPAY ==
--- NOTE | 2025-07-09 | CA_ITS ---
APPROVED REPORT Exam: Exercise Treadmill Technologist: Gabriela Cui Ht: 6 ft 0 in Wt: 244 lbs BSA: 2.32 m2 HR: 100 bpm BP: 156/97 mmHg Rhythm: SR Medical History Cardiac Risk Factors: Diabetes (insulin), FHX of CAD Stress Test Details HR Resting HR: 100 bpm Max Heart Rate (APMHR): 182 bpm Target HR (85% APMHR): 155 bpm Recovery HR: 131 bpm BP Resting BP: 156.0/97.0 mmHg Recovery BP: 187.0/95.0 mmHg ECG Resting ECG: SR Stress ECG Conclusion During janet protocol pt experinced chest tightness at peak exercise. No arrhythmias noted. Less than 1.5mm ST segment changes. Abnormal due to chest pain Electronically signed by : Faina Mendez MD 07/10/2025 13:28:33
--- OUTSIDE RECORDS SUMMARY | 2025-07-09 11:46 | XMS_ITS | Clinical Summary ---
Author Organization [facility] Address [address] [place] [address] Care Team Providers Care Consumer Credit Counselor Name Role Phone Unavailable Primary Care Provider Unavailabl e Social History Tobacco Use Types Packs/Day Years Used Date Smoking Tobacco: Never Assessed Sex and Gender Information Value Date Recorded Sex Assigned at Not on file Legal Sex Male 8:46 PM EDT Gender Identity Not on file Sexual Orientation Not on file Plan of Treatment Health Maintenance Due Date Last Done Comments [facility]-Depression Screening 1986 [facility]-Infant/Child/Adol SDOH Screenings 1986 [facility]-Varicella Vaccines (1 of 2 - 13+ 2-dose series) 1999 [facility]-DTaP,Tdap,and Td Vaccines (2 - Tdap) 05/12/2000 05/11/2000 [facility]-Hepatitis B Vaccines (2 of 3 - 3-dose series) 06/08/2000 05/11/2000 [facility]- SDOH Screenings 2004 [facility]-Adult SDOH Screenings 2004 HPV Vaccines (1 - 3-dose SCDM series) 2013 AOS-EELXA-86 Vaccine (3 - season) 2024 05/07/2021, 04/11/2021 [facility]-Influenza Vaccine (#1) 2025 12/25/2017 [facility]-Zoster Vaccines (1 of 2) 2036 [facility]-HIB Vaccines Aged Out No longer e ligible based on patient's age to complete this topic [facility]-Hepatitis A Vaccines Aged Out No longer eligible based on patient's age to complete this topic [facility]-IPV Vaccines Aged Out No longer e ligible based on patient's age to complete this topic [facility]-Pneumococcal Vaccine: Pediatrics (0 to 5 Years) and At-Risk Patients (6 to 49 Years) Aged Out No longer eligible b ased on patient's age to complete this topic [facility]-Rotavirus Vaccines Aged Out No lo nger eligible based on patient's age to complete this topic Insurance [facility]
--- OUTSIDE RECORDS SUMMARY | 2025-07-09 11:46 | XMS_ITS | Clinical Summary ---
Author Organization [facility] Address [address] [place] [address] Care Team Providers Care Spud Driller Name Role Phone Breanna Loera Primary Care Provider [phone] Allergies No known active allergies Medications B-D UF III MINI PEN NEEDLES 31G X 5 MM miscIndications :Type 2 diabetes mellitus with hyperglycemia, with long-term current use of insulin 1 Active Blood Glucose Monitoring Suppl deviceIndicatio ns:Type 2 diabetes mellitus with hyperglycemia, with long-term current use of insulin Test sugars bid ok to change to ins formulary 1 each 2 Active Glucose Blood (Blood Glucose Test) stripIndication s:Type 2 diabetes mellitus with hyperglycemia, with long-term current use of insulin Test sugars bid ok to change to ins formulary 200 each 1 2 Active Lancets 33G miscIndications :Type 2 diabetes mellitus with hyperglycemia, with long-term current use of insulin 1 each 2 (Two) Times a Day. Test sugars bid ok to change to ins formulary 200 each 1 2 Active Continuous Blood Gluc Sensor (Dexcom G6 Sensor) Every 10 (Ten) Days. 3 each 11 2 Active Continuous Blood Gluc Transmit (Dexcom G6 Transmitter) misc 1 each Every 3 (Three) Months. 1 each 3 2 Active Continuous Blood Gluc Water Pump Installer (Dexcom G6 Water Pump Installer) device 1 each Continuous. 1 each 2 Active Lantus SoloStar 100 UNIT/ML injection penIndications: Type 2 diabetes mellitus with hyperglycemia, with long-term current use of insulin 25 units daily and titrate per instructions, MDD 40 units 12 mL 3 2 Active insulin aspart (NovoLOG FlexPen) 100 UNIT/ML solution pen-injector sc pen For use at mealtimes and per correctional scale, MDD 50 units 15 mL 3 2 Active Active Problems No known active problems Family History Medical History Relation Name Comments Diabetes Father Heart disease Father Hypertension Father Tuberculosis Father Diabetes Mother Kidney disease Mother No Known Problems Sister Relation Name Status Comments Father Mother Alive Sister Alive Social History Tobacco Use Types Packs/Day Years Used Date Smoking Tobacco: Never Smokeless Tobacco: Current Chew Alcohol Use Standard Drinks/Week Comments Never 0 (1 standard drink = 0.6 oz pur e alcohol) Abuse Screen Answer Date Recorded Unsafe at Home or Work/School Not on file Feels Threatened by Someone? Not on file Does Anyone Keep You from Co ntacting Others or Doint Things Outside the Home? Not on file 09/07/2023 Physical Sign of Abuse Present Not on file 1 Housing Stability Answer Date Recorded Current Living Arrangements Not on file 08/26 Potentially Unsafe Housing Conditions Not on malgorzata e 09/07/2023 Family and Community Support Answer Carlos e Recorded Help with Day-to-Day Activities Not on file 09/07/2023 Lonely or Isolated Not on file 09/07/2023 Employment Answer Date Recorded Do you want help finding or keeping work or a sadie b? Not on file 09/07/2023 Disabilities Answer Date Recorded Concentrating, Remembering, or Making Decisions Difficulty Not on file 09/07/2023 Doing Errands Independently Difficulty Not on fi le 09/07/2023 Education Answer Date Recorded Help with school or training? Not on file Preferred Language Not on file 09/07/2023 Sex and Gender Information Value Date Recorded Sex Assigned at Not on file Legal Sex Male 10:39 AM EDT Gender Identity Not on file Sexual Orientation Not on file Last Filed Vital Signs Vital Sign Reading Time Taken Comments Blood Pressure 140/90 12/16/2021 8:55 AM EST Pulse 97 12/16/2021 8:55 AM EST Temperature - - Respiratory Rate - - Oxygen Saturation 98% 12/16/2021 8:55 AM EST Inhaled Oxygen Concentration - - Weight 113 kg (250 lb) 12/16/2021 8:55 AM EST Height 182.9 cm (6') 12/16/2021 8:55 AM EST Body Mass Index 33.91 12/16/2021 8:55 AM EST Plan of Treatment Health Maintenance Due Date Last Done Comments TDAP/TD VACCINES (2 - Tdap) 05/11/2010 05/11/2000 ANNUAL PHYSICAL 11/30/2021 HEPATITIS C SCREENING 11/30/2021 COVID-19 Vaccine (1 - 2023-2 5 season) 2024 INFLUENZA VACCINE 08/26/2025 12/25/2017 HEMOGLOBIN A1C Discontinued 11/30/2021 Pneumococcal Vaccine 0-49 Aged Out No longer eligible based on patient's age to complete this topic Procedures Procedure Name Priority Date/Time Associated Diagnosis Comments POCT GLYCOSYLATED HEMOGLOBIN (HGB A1C) Routine 11/30/2021 9:10 AM EST Type 2 diabetes mellitus with hyperglycemia, with long-term current use of insulin from Last 3 Months or Most Recently Relevant to Health Maintenance Results * POC Glycosylated Hemoglobin (Hb A1C) (11/30/2021 9:10 AM EST) Hemoglobin A1C 10.8 % [facility] Lot Number [id number] [facility] Expiration Date 08-08-23 [facility] Blood 11/30/2021 9:10 AM EST us Mery Cano MD POINT OF CARE TEST ORDERABLES F inal Result [facility]
[address] [place] [address], from Last 3 Months or Most Recently Relevant to Health Maintenance Insurance [employer] Bro [id number] Care Teams Spud Driller Relationship Specialty Start Date End Date Breanna Loera DO [address] [place], [place] [id number] PCP - General Family Medicine 11/30/21
--- OUTSIDE RECORDS SUMMARY | 2025-07-09 11:46 | XMS_ITS | Clinical Summary ---
Author Organization [facility] Address [address] [facility] [address] [place] [address] Phone Care Team Providers Care Rivet Maker Name Role Phone Unavailable Primary Care Provider Unavailabl e Allergies No known active allergies Medications aspirin 81 mg Oral Tablet, Chewable Take 81 mg by mouth daily. - chew and swallow 3 Active atorvastatin (LIPITOR) 80 mg Oral Tablet Take 80 mg by mouth nightly. 3 Active bisoprolol (ZEBETA) 10 mg Oral Tablet Take 10 mg by mouth daily. 3 Active clopidogreL (PLAVIX) 75 mg Oral Tablet Take 75 mg by mouth daily. 3 Active irbesartan (AVAPRO) 75 mg Oral Tablet Take 75 mg by mouth daily. 3 Active isosorbide mononitrate (IMDUR) 30 mg Oral Tablet Sustained Release 24 hr Take 30 mg by mouth daily. 3 Active Ranolazine 1,000 mg Oral Tablet Sustained Release 12 hr Take 1 Tablet by mouth 2 times daily. 3 Active insulin glargine (LANTUS SOLOSTAR U-100 INSULIN) 100 unit/mL (3 mL) SubQ Insulin Pen Subcutaneous (Inject under the skin) 28 Units nightly. 15 mL 11 3 Active semaglutide (OZEMPIC) 0.25 mg or 0.5 mg (2 mg/3 mL) SubQ Pen InjectorIndicat ions:Type 2 diabetes mellitus with hyperglycemia, with long-term current use of insulin (HCC) Subcutaneous (Inject under the skin) 0.5 mg once a week. 3 mL 11 3 Active dapagliflozin-m etFORMIN (XIGDUO XR) 5-1,000 mg Oral tablet, IR & ER, biphasic 24hr Take 2 Tablets by mouth daily. 60 Tablet 3 Active Blood-Glucose Sensor (DEXCOM G7 SENSOR) [facility] Device 1 Each by [facility].(Non-Drug; Combo Route) route every 10 days. 3 Each 3 Active ONETOUCH VERIO TEST STRIPS [facility] StripIndication s:Type 2 diabetes mellitus with hyperglycemia, with long-term current use of insulin (HCC) Use to test blood sugars up to 3 times daily. E11.65 100 Each 11 3 Active Lancets [facility] MiscIndications :Type 2 diabetes mellitus with hyperglycemia, with long-term current use of insulin (HCC) Use to test blood sugars up to 3 times daily. E11.65 100 Each 5 3 Active Active Problems Problem Noted Date Diagnosed Date Type 2 diabetes mellitus wit h hyperglycemia, with long-term current use of insulin 11/05/2023 ASCVD (arteriosclerotic cardiovascular disease) 11/05/2023 Hypertension associated with type 2 diabetes denny litus 11/05/2023 Hyperlipidemia associated with type 2 diabetes m ellitus 11/05/2023 Medical History Medical History Date Comments Diabetes mellitus (HCC) Headache Angina at rest Heart attack (HCC) Heart disease Family History Medical History Relation Name Comments Coronary Art Dis Father Diabetes Father Heart Attack Father High Blood Pressure Father low testosterone Father Diabetes Maternal Grandfather High Blood Pressure Maternal Grandfather Diabetes Maternal Grandmother Kidney Disease Maternal Grandmother Lung Cancer Maternal Grandmother Anxiety Disorder Mother Depression Mother Diabetes Mother Kidney Disease Mother kidney failure Mother Relation Name Status Comments Father Maternal Grandfather Maternal Grandmother Mother Social History Tobacco Use Types Packs/Day Years Used Date Smoking Tobacco: Never Smokeless Tobacco: Never Tobacco Cessation:Counseling Given: Not Answered Alcohol Use Standard Drinks/Week Comments Never 0 (1 standard drink = 0.6 oz pur e alcohol) Sex and Gender Information Value Date Recorded Sex Assigned at Not on file Legal Sex Male 9:35 AM EDT Gender Identity Not on file Sexual Orientation Not on file Obstetrics History Last Filed Vital Signs Vital Sign Reading Time Taken Comments Blood Pressure - - Pulse - - Temperature - - Respiratory Rate 16 11/05/2023 1:43 PM EST Oxygen Saturation - - Inhaled Oxygen Concentration - - Weight 116.3 kg (256 lb 8 oz) 11/05/2023 1:43 PM EST Height 182.9 cm (6') 11/05/2023 1:43 PM EST Body Mass Index 34.79 11/05/2023 1:43 PM EST Plan of Treatment Health Maintenance Due Date Last Done Comments Annual Wellness Exam 1989 Lipids 1996 DTaP/TDaP/Td (2 - Tdap) 05/12/2000 05/11/2000 Hepatitis B Vaccine (2 of 3 - 3-dose series) 06/08/2000 05/11/2000 Diabetic Eye Exam 2004 Kidney Health: eGFR 2004 Kidney Health: uACR 2004 Pneumococcal Vaccine 0-49 (1 of 2 - PCV) 2005 Hemoglobin A1c 05/06/2024 11/05/2023 COVID-19 Vaccine (3 - 2023-2 5 season) 2024 05/07/2021, 04/11/2021 Influenza Vaccine (#1) 2025 12/25/2017 Meningococcal B Vaccine Aged Out No l onger eligible based on patient's age to complete this topic Procedures Procedure Name Priority Date/Time Associated Diagnosis Comments POCT GLYCATED HEMOGLOBIN, TOTAL Routine 11/05/2023 1:49 PM EST Type 2 diabetes mellitus with hyperglycemia, with long-term current use of insulin (HCC) from Last 3 Months or Most Recently Relevant to Health Maintenance Results * (ABNORMAL) POCT GLYCATED HEMOGLOBIN, TOTAL (11/05/2023 1:49 PM EST) Hemoglobin A1C 10.6(A) 4 - 6 % SEP OFFICE Lot Number SEP OFFICE Expiration Date SEP OFFICE SeriAl # SEP OFFICE 11/05/2023 1:49 PM EST us Brian Doherty MD POINT OF CARE TEST ORDERABLES Final Result SEP OFFICE from Last 3 Months or Most Recently Relevant to Health Maintenance Insurance [employer] PPO
--- NOTE | 2025-07-09 12:00 | NM_ITS ---
APPROVED REPORT Exam: Nuclear Stress Test Indication: Abnormal EKG, Chest pain, SOB, Fatigue, HTN, DM, High cholesterol, Family history, CAD Patient Location: Outpatient Stress Tech: Gabriela ADAIR Tech:Denise WheelerGABRIEL RT(R)(N) Ht: 6 ft 0 in Wt: 225 lbs HR: 100 bpm BP: 156/97 mmHg BSA: 2.24 m2 TID: 1.10 History: Abnormal EKG, Chest pain, SOB, Fatigue, HTN, DM, High cholesterol, Family history, CAD Procedure: Patient exercised on Bro protocol 4:30 minutes and sec, resting heart rate 100 bpm, resting blood pressure 156/97 mmHg, with exercise maximum heart rate achived was 158 bpm which is 91 % of the maximum predicted heart rate and blood pressure was 161/100 mmHg. Test was stopped due to SOB. Patient has exercise capacity, achieved 4.7 METs of workload on treadmill, the blood pressure response to exercise was . Cardiac Stress and Resting SPECT Images: Cardiac Stress and Resting SPECT images were obtained using technetium 99m Myoview 30.9 mCi stress and 10.28 mCi at rest. Resting and stress imaging in supine and prone positions demonstrate a large-sized, moderate, predominantly fixed perfusion defect in the inferior LV wall from the base and extending distally towards the inferoapical region. There is slight reversibility towards the distal inferior LV wall. Gated imaging demonstrates mild reduction in global LV systolic function. LVEF is calculated at 44%. Conclusion: Large-sized, moderate, predominantly fixed perfusion defect in the inferior LV wall from the base and extending distally towards the inferoapical region. There is slight reversibility towards the distal inferior LV wall. Findings are suggestive of partial reversible ischemia. Gated imaging demonstrates mild reduction in global LV systolic function. LVEF is calculated at 44%. Electronically signed by : Faina Mendez MD 07/10/2025 13:25:28
[2025-07-09] MEDS: SODIUM CHLORIDE 0.9% 10ML SYR (RAD ONLY) 10 ML IV ×2 (13:20)
[2025-07-09] MEDS: ISOTOPE MYOVIEW (PER STUDY) 1 DOSE IV (13:20)
--- NOTE | 2025-07-09 14:30 | CA_ITS ---
APPROVED REPORT EXAM: Comprehensive 2D, Doppler, and color-flow Echocardiogram Seo Intern: MELITA Harrington, RVS Ht: 6 ft 0 in Wt: 244lbs BSA: 2.32 BP: 116/82 mmHg Indications: Fatigue, CAD-stent, H/O ID, DM, HTN, HLD 2D Dimensions Left Atrium 3.12 cm M: 3.0 - 4.0 LA Volume 35.50 mL LA Volume Index 15.30 mL/m2 (M/F) 16-34 M-Mode Dimensions RVDd 2.13 cm (0.9-2.6) LA Diam 3.83 cm (1.9-4.0) LVDd 5.50 cm (3.5-5.7) LVDs 3.61 cm (3.5-5.7) IVSd 1.32 cm (0.6-1.1) PWd 1.20 cm (0.6-1.1) EF (Teich) 62.80% EPSs 1.29 cm FS 34.40% EDV (Teich) 147.40 mL TAPSE 2.47 (<1.7) ESV (Teich) 54.80 mL LV Diastology MED A' 11.60 cm/s LAT A' 11.60 cm/s Aortic Valve NICKI Index 0.95 cm2/m2 AoV Peak Don. 158.0 (50-130 cm/s) AO Peak GR. 10.00 mmHg AO Mean GR. 4.90 (<5 mmHg) AO VTI 22.4 (18-25 cm) NICKI (VTI) 2.26 (2.5-4.5 cm2) Pulmonary Valve PV Peak Velocity 88.0 (50-150 cm/s) Left Ventricle The left ventricle is normal size. Left ventricular systolic function is normal. The left ventricular ejection fraction is within the normal range. There is normal left ventricular wall thickness. There is normal LV segmental wall motion. The left ventricular diastolic function is normal. LVEF is 55% Right Ventricle The right ventricle is normal size. The right ventricular systolic function is normal. Atria The left atrium size is normal. The right atrium size is normal. There is no color Doppler evidence of interatrial shunt. Aortic Valve The aortic valve opens well. There is no hemodynamically significant aortic valvular stenosis. No aortic regurgitation is present. Mitral Valve The mitral valve is normal in structure. No evidence of mitral valve stenosis. Trace mitral regurgitation is present. Tricuspid Valve The tricuspid valve leaflets are thin and pliable. Trace tricuspid regurgitation. There is insufficient TR jet to estimate RVSP. Pulmonic Valve The pulmonary valve is grossly normal in structure. Trace pulmonic valve regurgitation is present. Great Vessels The aortic root is normal in size. IVC is normal in size and collapses >50% with inspiration. Pericardium There is no pericardial effusion. Other Information Study Quality: Fair Conclusion Normal biventricular systolic function. No significant valvular stenosis or regurgitation. Electronically signed by : Faina Mendez MD 07/10/2025 12:54:21
== END 2025-07-09 23:59 | disposition home or self-care (01) ==
LOC: RAD 11:44
PROVIDERS: PCP Family Medicine; Visit Provider Physician Assistant
DX: I25.10 Atherosclerotic heart disease of native coronary artery without angina pectoris (principal); I25.2 Old myocardial infarction; E11.9 Type 2 diabetes mellitus without complications; E78.5 Hyperlipidemia, unspecified; E78.00 Pure hypercholesterolemia, unspecified; I10 Essential (primary) hypertension; R94.39 Abnormal result of other cardiovascular function study; R94.31 Abnormal electrocardiogram [ECG] [EKG]; Z95.5 Presence of coronary angioplasty implant and graft
CPT/HCPCS: 78452; 93016; 93017; 93018; 93306; A9502

== ENCOUNTER 2025-11-07 10:37 | Emergency (ER) | payer OTHER, SELFPAY ==
--- OUTSIDE RECORDS SUMMARY | 2025-09-15 15:54 | XMS_ITS | Encounter Summary ---
Author Organization [facility] Address [address] [place] [address] Care Team Providers Care Ceramic Engineering Professor Name Role Phone Luz Maria Breanna Lisandra Primary Care Provider [phone] Reason for Referral * MRI/CAT/PET Scan (Routine) - Closed Specialty Diagnoses / Procedures Referred By Contac t Referred To Contact Radiology Diagnoses Unstable right ankle Procedures MRI Ankle Right Without Contrast Jordan Cummins Jr., MD [address] [place] [address] Phone: tel: fax: [address] [address] Phone: tel: Referral ID Status Reason Start Date Expiration Date Visits Re quested Visits Authorized [id number] Closed 08/21/2025 11/20/2026 1 1 Reason for Visit * MRI/CAT/PET Scan (Routine) - Closed Specialty Diagnoses / Procedures Referred By Contac t Referred To Contact Radiology Diagnoses Unstable right ankle Procedures MRI Ankle Right Without Contrast Jordan Cummins Jr., MD [address] [place] [address] Phone: tel: fax: [address] [address] Phone: tel: Referral ID Status Reason Start Date Expiration Date Visits Re quested Visits Authorized [id number] Closed 08/21/2025 11/20/2026 1 1 Encounter Details Date Type Department Care Team (Latest Contact Info) Description 09/15/2025 4:54 PM EDT - 09/15/2025 11:59 PM EDT Hospital Encounter [facility] [address] [place] [id number] Jordan Cummins Jr., MD [address] [place] [address] Unstable right ankle Discharge Disposition: Home or Self Care Social History Tobacco Use Types Packs/Day Years [...] on file Sexual Orientation Not on file documented as of this encounter Medications at Time of Discharge B-D UF III MINI PEN NEEDLES 31G X 5 MM miscIndications: Type 2 diabetes mellitus with hyperglycemia, with long-term current use of insulin 08/29/2021 Blood Glucose Monitoring Suppl deviceIndication s:Type 2 diabetes mellitus with hyperglycemia, with long-term current use of insulin Test sugars bid ok to change to ins formulary 1 each 11/30/2021 Continuous Blood Gluc Risk Control Product Liability Director (Dexcom G6 Risk Control Product Liability Director) device 1 each Continuous. 1 each 12/16/2021 Continuous Blood Gluc Sensor (Dexcom G6 Sensor) Every 10 (Ten) Days. 3 each 12/16/2021 Continuous Blood Gluc Transmit (Dexcom G6 Transmitter) misc 1 each Every 3 (Three) Months. 1 each 3 12/16/2021 Glucose Blood (Blood Glucose Test) stripIndications :Type 2 diabetes mellitus with hyperglycemia, with long-term current use of insulin Test sugars bid ok to change to ins formulary 200 each 1 11/30/2021 insulin aspart (NovoLOG FlexPen) 100 UNIT/ML solution pen-injector sc pen For use at mealtimes and per correctional scale, MDD 50 units 15 mL 3 12/16/2021 Lancets 33G miscIndications: Type 2 diabetes mellitus with hyperglycemia, with long-term current use of insulin 1 each 2 (Two) Times a Day. Test sugars bid ok to change to ins formulary 200 each 1 11/30/2021 Lantus SoloStar 100 UNIT/ML injection penIndications:T ype 2 diabetes mellitus with hyperglycemia, with long-term current use of insulin 25 units daily and titrate per instructions, MDD 40 units 12 mL 3 12/16/2021 documented as of this encounter Plan of Treatment Not on file documented as of this encounter Procedures Procedure Name Priority Date/Time Associated Diagnosis Comments MRI ANKLE RIGHT WO CONTRAST Routine 09/15/2025 5:44 PM EDT Unstable right ankle documented in this encounter Results * MRI Ankle Right Without Contrast (09/15/2025 5:44 PM EDT) Anatomical Region Laterality Modality Lower Extremities, Knee Magnetic Resonance 09/21/2025 11:2 4 AM EDT Impressions 09/21/2025 11:55 AM EDT Impression: 1.Abnormal appearance of the cervical ligament in the anterior-lateral sinus tarsi, suggesting prior injury. This could be associated with chronic instability and sinus tarsi syndrome although there does not appear to be significant sinus tarsi edema on this exam. 2.Findings of suspected prior injury and scarring of the anterior tibiofibular and anterior talofibular ligaments which could also be associated with chronic instability. 3.Diffuse heterogeneous edema signal of the foot musculature and flexor hallucis longus muscle with mild to moderate diffuse fatty muscle atrophy. Given patient's history of diabetes, these findings may represent chronic denervation. 4.Mild nonspecific soft tissue edema. 5.No definite findings of acute osseous abnormality. Electronically Signed: Nico Dallas 09/21/2025 11:55 AM EDT Workstation ID: [id number] Narrative 09/21/2025 11:55 AM EDT MRI ANKLE RIGHT WO CONTRAST Date of Exam: 09/15/2025 5:01 PM EDT Indication: M25.371. Unstable right ankle, lateral pain. History of diabetes. Comparison: None available. Technique: Routine multiplanar/multisequence images of the right ankle were obtained without contrast administration. Findings: No evidence of acute fracture. Marrow signal appears within normal limits. Alignment appears within normal limits on these nonweightbearing images. No significant joint effusion. No visualized osteochondral lesion. No significant osteophytosis or erosions. Joint spaces appear within normal limits and definite focal cartilage abnormality is identified. Distal syndesmosis appears intact. There appears to be thickening and hypertrophic changes at the anterior tibiofibular ligament. No T2 fluid signal defect is identified, suggesting this to be the sequelae of prior injury and scarring. Anterior talofibular ligament appears small in size but there appear to be some intact ligament fibers. This may also be the sequelae of prior injury. Lateral ankle ligaments otherwise appear to be intact without definite findings of acute abnormality. No findings of acute deltoid or spring ligament injury. Lisfranc ligament appears intact. In the anterior-lateral sinus tarsi, there appears to be an abnormal heterogeneous hypointense signal structure extending from the anterior calcaneus to the anterior-lateral talus. The appearance is suspicious for an abnormal and thickened cervical ligament, suggesting prior injury. There does not appear to be significant edema within the sinus tarsi or surrounding the ligament. Anterior process of the calcaneus appears to be intact. No visualized osseous coalition. Plantar fascia appears intact. No definite findings of acute plantar fasciitis. There is diffuse heterogeneous edema signal of the plantar and dorsal foot musculature. There is also edema signal in the flexor hallucis longus muscle. There appears to be mild to moderate diffuse fatty muscle atrophy. Achilles tendon appears intact. Enthesophyte formation at the Achilles tendon insertion. Flexor, extensor, and peroneal tendons appear intact. No tenosynovitis. Mild subcutaneous edema at the medial and anterior and lateral aspect of the ankle. Procedure Note Nico Dallas MD - 09/21/2025 MRI ANKLE RIGHT WO CONTRAST Date of Exam: 09/15/2025 5:01 PM EDT Indication: M25.371. Unstable right ankle, lateral pain. History ofdiabetes. Comparison: None available. Technique: Routine multiplanar/multisequence images of the right anklewere obtained without contrast administration. Findings: No evidence of acute fracture. Marrow signal appears within normal limits.Alignment appears within normal limits on these nonweightbearing images. No significant joint effusion. No visualized osteochondral lesion. Nosignificant osteophytosis or erosions. Joint spaces appear within normallimits and definite focal cartilage abnormality is identified. Distal syndesmosis appears intact. There appears to be thickening andhypertrophic changes at the anterior tibiofibular ligament. No T2 fluidsignal defect is identified, suggesting this to be the sequelae of priorinjury and scarring. Anterior talofibular ligament appears small in size but there appear to be someintact ligament fibers. This may also be the sequelae of prior injury.Lateral ankle ligaments otherwise appear to be intact without definitefindings of acute abnormality. No findings of acute deltoid or spring ligament injury. Lisfranc ligamentappears intact. In the anterior-lateral sinus tarsi, there appears to be an abnormalheterogeneous hypointense signal structure extending from the anteriorcalcaneus to the anterior-lateral talus. The appearance is suspicious carmelo abnormal and thickened cervical ligament, suggesting prior injury. There does not appear to be significantedema within the sinus tarsi or surrounding the ligament. Anterior processof the calcaneus appears to be intact. No visualized osseous coalition. Plantar fascia appears intact. No definite findings of acute plantarfasciitis. There is diffuse heterogeneous edema signal of the plantar and dorsal footmusculature. There is also edema signal in the flexor hallucis longusmuscle. There appears to be mild to moderate diffuse fatty muscleatrophy. Achilles tendon appears intact. Enthesophyte formation at the Achillestendon insertion. Flexor, extensor, and peroneal tendons appear intact. Notenosynovitis. Mild subcutaneous edema at the medial and anterior and lateral aspect ofthe ankle. IMPRESSION: Impression: 1.Abnormal appearance of the cervical ligament in the anterior-lateralsinus tarsi, suggesting prior injury. This could be associated withchronic instability and sinus tarsi syndrome although there does notappear to be significant sinus tarsi edema on this exam. 2.Findings of suspected prior injury and scarring of the anteriortibiofibular and anterior talofibular ligaments which could also beassociated with chronic instability. 3.Diffuse heterogeneous edema signal of the foot musculature and flexorhallucis longus muscle with mild to moderate diffuse fatty muscle atrophy.Given patient's history of diabetes, these findings may represent chronicdenervation. 4.Mild nonspecific soft tissue edema. 5.No definite findings of acute osseous abnormality. Electronically Signed: Nico Dallas 09/21/2025 11:55 AM EDT Workstation ID: [id number] Jordan Cummins Jr., MD IMG MRI ORDERABLES Silva l Result documented in this encounter Visit Diagnoses Diagnosis Unstable right ankle Other joint derangement, not elsewhere classified, ankle and foot documented in this encounter Care Teams Ceramic Engineering Professor Relationship Specialty Start Date End Date Breanna Loera DO [address] [place] [address] PCP - General Family Medicine 11/30/21 documented as of this encounter
[2025-11-07] VITALS (7 sets, daily range): BP systolic 116–142; BP diastolic 70–87; PULSE 96–103; RESP 16–18; TEMP 36.6–36.8; O2SAT 95–100; BMI 30.5
--- OUTSIDE RECORDS SUMMARY | 2025-11-07 10:50 | XMS_ITS | Encounter Summary ---
Author Organization [facility] Address [address] [place] [address] Care Team Providers Care Venetian Blind Tape Cutter Name Role Phone Breanna Loera Primary Care Provider [phone] Reason for Visit * Reason Onset Date Comments Med Refill 09/15/2025 Encounter Details Date Type Department Care Team (Late st Contact Info) Description 09/15/2025 Refill [facility] [address] [facility] [address] [place] [address] Mery Cano MD [address] [facility] [address] [place] [address] Type 2 diabetes mellitus with hyperglycemia, with long-term current use of insulin Social History Tobacco Use Types Packs/Day Years [...] on file documented as of this encounter Miscellaneous Notes * Telephone Encounter - Jennifer Cuello MA - 09/16/2025 8:24 AM EDTSummary: refill Rx Refill Note Requested Prescriptions Pending Prescriptions Disp Refills Continuous Glucose Sensor (Dexcom G6 Sensor) 3 each 11 Sig: Use Every 10 (Ten) Days. Lantus SoloStar 100 UNIT/ML injection pen 12 mL 3 Si units daily and titrate per instructions, MDD 40 units insulin aspart (NovoLOG FlexPen) 100 UNIT/ML solution pen-injector sc pen 15 mL 3 Sig: For use at mealtimes and per correctional scale, MDD 50 units Last office visit with prescribing clinician: 12/16/2021 Next office visit with prescribing clinician: Visit date not found Jennifer Cuello MA 09/16/25, 08:24 EDT documented in this encounter Plan of Treatment Not on file documented as of this encounter Visit Diagnoses Diagnosis Type 2 diabetes mellitus with hyperglycemia, with long-term current use of insulin documented in this encounter Care Teams Venetian Blind Tape Cutter Relationship Specialty Start Date End Date Breanna Loera DO [address] [place] [address] PCP - General Family Medicine 11/30/21 documented as of this encounter
--- OUTSIDE RECORDS SUMMARY | 2025-11-07 10:50 | XMS_ITS | Clinical Summary ---
Author Organization [facility] Address [address] [place] [address] Care Team Providers Care [place] [employer] Member Name Role Phone Breanna Loera DO Primary Care Provider [phone] Allergies No known active allergies Encounters Date Type Department Care Team Description 09/07/2025 12:51 PM EDT - 09/07/2025 5:32 PM EDT Emergency [facility] [address] [place] [address] Tanvir Monroy MD Katirji, Linda Y, MD Seizure-like activity (CMS/HCC) (Primary Dx) Discharge Disposition: Home or Self Care 09/07/2025 Travel 09/05/2025 Orders Only External Location [address] [place] [address] Provider, External from Last 3 Months Social History Tobacco Use Types Packs/Day Years Used Date Smoking Tobacco: Never Assessed Sex and Gender Information Value Date Recorded Sex Assigned at Not on file Legal Sex Male 8:46 PM EDT Gender Identity Not on file Sexual Orientation Not on file Last Filed Vital Signs Vital Sign Reading Time Taken Comments Blood Pressure 125/88 09/07/2025 4:36 PM EDT Pulse 88 09/07/2025 4:36 PM EDT Temperature 36.7 C (98.1 F) 09/07/2025 4:36 PM EDT Respiratory Rate 19 09/07/2025 4:36 PM EDT Oxygen Saturation 98% 09/07/2025 4:36 PM EDT Inhaled Oxygen Concentration - - Weight 110 kg (243 lb 2.7 oz) 09/07/2025 12:19 P M EDT Height - - Body Mass Index - - Plan of Treatment Health Maintenance Due Date Last Done Comments [facility]-Depression Screening 1986 [facility]-/Child/Adol SDOH Screenings 1986 [facility]-Varicella Vaccines (1 of 2 - 13+ 2-dose series) 1999 [facility]-DTaP,Tdap,and Td Vaccines (2 - Tdap) 05/12/2000 05/11/2000 [facility]-Hepatitis B Vaccines (2 of 3 - 3-dose series) 06/08/2000 05/11/2000 [facility]- SDOH Screenings 2004 [facility]-Adult SDOH Screenings 2004 HPV Vaccines (1 - 3-dose SCDM series) 2013 [facility]ET-WABAN-67 Vaccine (3 - season) 2025 05/07/2021, 04/11/2021 [facility]-Influenza Vaccine (#1) 2025 12/25/2017 [facility]-Zoster Vaccines (1 of 2) 2036 [facility]-HIV Screening Completed 09/07/2025 [facility]-Hepatitis C Screening Completed 09/07/2025 [facility]-HIB Vaccines Aged Out No longer e [...] Procedure Name Priority Date/Time Associated Diagnosis Comments CT ANGIO NECK STAT 09/07/2025 3:[address] ANGIO HEAD STAT 09/07/2025 3:[address] HEAD WO IV CONTRAST STAT 3:31 PM EDT PROLACTIN, SERUM STAT 09/07/2025 2:51 PM EDT LACTATE, VENOUS STAT 09/07/2025 2:51 PM EDT TROPONIN T, HIGH SENSITIVITY, 2 HOUR, PLASMA Timed 09/07/2025 2:51 PM EDT ECG ADULT STAT 09/07/2025 1:07 PM EDT ED HIV 1/2 ANTIBODY/ANTIGEN SCREEN WITH REFLEX TO HIV I/II DIFFERENTIATION STAT 09/07/2025 12:51 PM EDT ED PROTOCOL HIV 1/2 ANTIBODY/ANTIGEN SCREEN W/REFLEX TO HIV 1/2 ANTIBODY DIFFERENTIATION STAT 09/07/2025 12:51 PM EDT HEPATITIS C ANTIBODY - ED W/REFLEX TO HCV QUANT PCR STAT 09/07/2025 12:51 PM EDT MAGNESIUM, PLASMA STAT 09/07/2025 12: 51 PM EDT TROPONIN T, HIGH SENSITIVITY, 0 HOUR, PLASMA, REFLEX TO 2 HOUR STAT 09/07/2025 12:51 PM EDT CBC WITH AUTO DIFFERENTIAL STAT 09/07/2025 12:51 PM EDT COMPREHENSIVE METABOLIC PANEL, PLASMA STAT 09/07/2025 12:[address] NEURO OUTSIDE IMAGES 09/05/20 25 10:03 AM EDT from Last 3 Months Results * CT Angio Neck (09/07/2025 3:31 PM EDT) Anatomical Region Laterality Modality Carotid Artery Computed Tomogra phy Impressions 09/07/2025 5:12 PM EDT Neck CTA: No significant stenosis is present within the cervical carotid and vertebral systems. Head CTA: No significant intracranial arterial stenosis or aneurysm is present. CRITICAL RESULT: No. COMMUNICATION: Per this written report. By electronically signing this report, I, the attending physician, attest that I have personally reviewed the images/data for the above examination(s) and agree with the final edited report. Drafted by Freddy Molina DO on 09/07/2025 3:51 PM Final report signed by Naveed Palma MD on 09/07/2025 5:12 PM Narrative 09/07/2025 5:12 PM EDT CLINICAL INDICATION: Left upper and lower extremity weakness with ?seizure-like activity? TECHNIQUE: Head CTA: Axial images were obtained through the head during contrast bolus injection and multiplanar MIP images were created. Neck CTA: Axial images were obtained through the neck during bolus contrast injection and multiplanar reformatted and MIP images were created. 60 mL of Omnipaque 350 were administered intravenously. Total DLP (Dose-Length Product): 1419.50 mGy.cm (accession [id number]), 1419.50 mGy.cm (accession [id number]). Please note: The reported value represents the total of one or more individual components during the CT acquisition on this date and at this time, and as such, the same value may appear in more than one CT report depending on the interpreting/reporting physicians. COMPARISON: Concurrently performed head CT FINDINGS: Neck CTA: Diagnostic Quality: Adequate Aorta and Great Vessel Origins: There is a common origin of the brachiocephalic and left common carotid arteries. There is no significant stenosis of the origins of the great arteries of the neck. Right Cervical Carotid System: The right common carotid artery and its origin are patent. There is no significant atherosclerotic plaque at the carotid bifurcation. There is a 0% stenosis at the bifurcation by NASCET criteria. The right internal carotid artery demonstrates a normal course in the cervical region. There is no evidence of dissection or pseudoaneurysm of the right common and internal carotid arteries. Left Cervical Carotid System: The left common carotid artery and its origin are patent. There is trace calcified atherosclerotic plaque at the carotid bifurcation. There is a 0% stenosis at the bifurcation by NASCET criteria. The left internal carotid artery demonstrates a normal course in the cervical region. There is no evidence of dissection or pseudoaneurysm of the left common and internal carotid arteries. Vertebral arteries: The origins appear patent. Small focus of calcific plaque at the origin of the right vertebral artery without significant stenosis. The left vertebral artery is congenitally diminutive. There is no evidence of a dissection, pseudoaneurysm, or significant stenosis of the vertebral arteries. Other Findings: Mild multilevel degenerative changes of the cervical spine without evidence of high-grade osseous spinal canal or neuroforaminal narrowing. Minimal mucosal thickening in the inferior left maxillary sinus. Head CTA: Diagnostic Quality: Venous contamination. Vertebrobasilar System: Congenitally diminutive left intradural vertebral artery. Minimal atherosclerotic plaque without significant stenosis involving the right intradural vertebral artery. The basilar artery and its major branches are within normal limits. There is no aneurysm. Carotid Arteries: Right ICA: Predominantly calcified atherosclerotic plaque involving the cavernous ICA without significant stenosis. Left ICA: Predominantly calcified atherosclerotic plaque involving the and supraclinoid ICA without significant stenosis. Other Findings: There is no aneurysm of either internal carotid artery. [facility] [place] and Major Peripheral Branches: There is no significant stenosis or occlusion. There is no aneurysm. Hypoplastic right A1. 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 Other Findings: None. Procedure Note Naveed Palma MD - 09/07/2025 CLINICAL INDICATION: Left upper and lower extremity weakness with ?seizure-like activity? TECHNIQUE: Head CTA: Axial images were obtained through the head during contrastbolus injection and multiplanar MIP images were created. Neck CTA: Axial images were obtained through the neck during boluscontrast injection and multiplanar reformatted and MIP images werecreated. 60 mL of Omnipaque 350 were administered intravenously. Total DLP (Dose-Length Product): 1419.50 mGy.cm (accession [id number]),1419.50 mGy.cm (accession [id number]). Please note: The reported valuerepresents the total of one or more individual components during the CTacquisition on this date and at this time, and as such, the same value mayappear in more than one CT report depending on the interpreting/reportingphysicians. COMPARISON: Concurrently performed head CT FINDINGS: Neck CTA: Diagnostic Quality: Adequate Aorta and Great Vessel Origins: There is a common origin of thebrachiocephalic and left common carotid arteries. There is no significantstenosis of the origins of the great arteries of the neck. Right Cervical Carotid System: The right common carotid artery and itsorigin are patent. There is no significant atherosclerotic plaque at thecarotid bifurcation. There is a 0% stenosis at the bifurcation by NASCETcriteria. The right internal carotid artery demonstrates a normal coursein the cervical region. There is no evidence of dissection orpseudoaneurysm of the right common and internal carotid arteries. Left Cervical Carotid System: The left common carotid artery and itsorigin are patent. There is trace calcified atherosclerotic plaque at thecarotid bifurcation. There is a 0% stenosis at the bifurcation by NASCETcriteria. The left internal carotid artery demonstrates a normal course inthe cervical region. There is no evidence of dissection or pseudoaneurysmof the left common and internal carotid arteries. Vertebral arteries: The origins appear patent. Small focus of calcificplaque at the origin of the right vertebral artery without significantstenosis. The left vertebral artery is congenitally diminutive. There isno evidence of a dissection, pseudoaneurysm, or significant stenosis ofthe vertebral arteries. Other Findings: Mild multilevel degenerative changes of the cervical spinewithout evidence of high-grade osseous spinal canal or neuroforaminalnarrowing. Minimal mucosal thickening in the inferior left maxillarysinus. Head CTA: Diagnostic Quality: Venous contamination. Vertebrobasilar System: Congenitally diminutive left intradural vertebralartery. Minimal atherosclerotic plaque without significant stenosisinvolving the right intradural vertebral artery. The basilar artery andits major branches are within normal limits. There is no aneurysm. Carotid Arteries: Right ICA: Predominantly calcified atherosclerotic plaque involving thecavernous ICA without significant stenosis. Left ICA: Predominantly calcified atherosclerotic plaque involving the andsupraclinoid ICA without significant stenosis. Other Findings: There is no aneurysm of either internal carotid artery. [facility] [place] and Major Peripheral Branches: There is no significantstenosis or occlusion. There is no aneurysm. Hypoplastic right A1. Fetalorigin of the right REAL TIME ANALYST. Other Findings: None. IMPRESSION: Neck CTA: No significant stenosis is present within the cervical carotid andvertebral systems. Head CTA: No significant intracranial arterial stenosis or aneurysm is present. CRITICAL RESULT: No. COMMUNICATION: Per this written report. By electronically signing this report, I, the attending physician, attestthat I have personally reviewed the images/data for the aboveexamination(s) and agree with the final edited report. Drafted by Freddy Molina DO on 09/07/2025 3:51 PM Final report signed by Naveed Palma MD on 09/07/2025 5:12 PM us Tanvir Monroy MD IMG CT PROCEDURES Final Re sult * CT Head wo IV Contrast (09/07/2025 3:31 PM EDT) Anatomical Region Laterality Modality Head Computed Tomogra phy Impressions 09/07/2025 4:49 PM EDT No acute intracranial abnormality. CRITICAL RESULT: No. COMMUNICATION: Per this written report. By electronically signing this report, I, the attending physician, attest that I have personally reviewed the images/data for the above examination(s) and agree with the final edited report. Drafted by Freddy Molina DO on 09/07/2025 3:46 PM Final report signed by Naveed Palma MD on 09/07/2025 4:49 PM Narrative 09/07/2025 4:49 PM EDT CLINICAL INDICATION: Possible seizures TECHNIQUE: Spiral axial CT images of the head were obtained without contrast administration. Total DLP (Dose-Length Product): 1419.50 mGy.cm. Please note: The reported value represents the total of one or more individual components during the CT acquisition on this date and at this time, and as such, the same value may appear in more than one CT report depending on the interpreting/reporting physicians. COMPARISON: CT head 12/07/2008 FINDINGS: Diagnostic Quality: Adequate. The ventricles and sulci are normal in size. There is no acute large cortical infarct, intracranial hemorrhage or large mass on this noncontrast study. Soft Tissues: No significant soft tissue swelling is present. Skull: There are no calvarial destructive lesions or fractures. Sinuses and Mastoids: The visualized portions of the paranasal sinuses are clear. The mastoid air cells are clear. Procedure Note Naveed Palma MD - 09/07/2025 CLINICAL INDICATION: Possible seizures TECHNIQUE: Spiral axial CT images of the head were obtained without contrastadministration. Total DLP (Dose-Length Product): 1419.50 mGy.cm. Please note: The reportedvalue represents the total of one or more individual components during theCT acquisition on this date and at this time, and as such, the same valuemay appear in more than one CT report depending on theinterpreting/reporting physicians. COMPARISON: CT head 12/07/2008 FINDINGS: Diagnostic Quality: Adequate. The ventricles and sulci are normal in size. There is no acute large cortical infarct, intracranial hemorrhage or largemass on this noncontrast study. Soft Tissues: No significant soft tissue swelling is present. Skull: There are no calvarial destructive lesions or fractures. Sinuses and Mastoids: The visualized portions of the paranasal sinuses areclear. The mastoid air cells are clear. IMPRESSION: No acute intracranial abnormality. CRITICAL RESULT: No. COMMUNICATION: Per this written report. By electronically signing this report, I, the attending physician, attestthat I have personally reviewed the images/data for the aboveexamination(s) and agree with the final edited report. Drafted by Freddy Molina DO on 09/07/2025 3:46 PM Final report signed by Naveed Palma MD on 09/07/2025 4:49 PM us Christopher Meyer MD IMG CT PROCEDURES Final Res ult * CT Angio Head (09/07/2025 3:31 PM EDT) Anatomical Region Laterality Modality [facility] [place] Computed Tomogr aphy Impressions 09/07/2025 5:12 PM EDT Neck CTA: No significant stenosis is present within the cervical carotid and vertebral systems. Head CTA: No significant intracranial arterial stenosis or aneurysm is present. CRITICAL RESULT: No. COMMUNICATION: Per this written report. By electronically signing this report, I, the attending physician, attest that I have personally reviewed the images/data for the above examination(s) and agree with the final edited report. Drafted by Freddy Molina DO on 09/07/2025 3:51 PM Final report signed by Naveed Palma MD on 09/07/2025 5:12 PM Narrative 09/07/2025 5:12 PM EDT CLINICAL INDICATION: Left upper and lower extremity weakness with ?seizure-like activity? TECHNIQUE: Head CTA: Axial images were obtained through the head during contrast bolus injection and multiplanar MIP images were created. Neck CTA: Axial images were obtained through the neck during bolus contrast injection and multiplanar reformatted and MIP images were created. 60 mL of Omnipaque 350 were administered intravenously. Total DLP (Dose-Length Product): 1419.50 mGy.cm (accession [id number]), 1419.50 mGy.cm (accession [id number]). Please note: The reported value represents the total of one or more individual components during the CT acquisition on this date and at this time, and as such, the same value may appear in more than one CT report depending on the interpreting/reporting physicians. COMPARISON: Concurrently performed head CT FINDINGS: Neck CTA: Diagnostic Quality: Adequate Aorta and Great Vessel Origins: There is a common origin of the brachiocephalic and left common carotid arteries. There is no significant stenosis of the origins of the great arteries of the neck. Right Cervical Carotid System: The right common carotid artery and its origin are patent. There is no significant atherosclerotic plaque at the carotid bifurcation. There is a 0% stenosis at the bifurcation by NASCET criteria. The right internal carotid artery demonstrates a normal course in the cervical region. There is no evidence of dissection or pseudoaneurysm of the right common and internal carotid arteries. Left Cervical Carotid System: The left common carotid artery and its origin are patent. There is trace calcified atherosclerotic plaque at the carotid bifurcation. There is a 0% stenosis at the bifurcation by NASCET criteria. The left internal carotid artery demonstrates a normal course in the cervical region. There is no evidence of dissection or pseudoaneurysm of the left common and internal carotid arteries. Vertebral arteries: The origins appear patent. Small focus of calcific plaque at the origin of the right vertebral artery without significant stenosis. The left vertebral artery is congenitally diminutive. There is no evidence of a dissection, pseudoaneurysm, or significant stenosis of the vertebral arteries. Other Findings: Mild multilevel degenerative changes of the cervical spine without evidence of high-grade osseous spinal canal or neuroforaminal narrowing. Minimal mucosal thickening in the inferior left maxillary sinus. Head CTA: Diagnostic Quality: Venous contamination. Vertebrobasilar System: Congenitally diminutive left intradural vertebral artery. Minimal atherosclerotic plaque without significant stenosis involving the right intradural vertebral artery. The basilar artery and its major branches are within normal limits. There is no aneurysm. Carotid Arteries: Right ICA: Predominantly calcified atherosclerotic plaque involving the cavernous ICA without significant stenosis. Left ICA: Predominantly calcified atherosclerotic plaque involving the and supraclinoid ICA without significant stenosis. Other Findings: There is no aneurysm of either internal carotid artery. [facility] and Major Peripheral Branches: There is no significant stenosis or occlusion. There is no aneurysm. Hypoplastic right A1. 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 Other Findings: None. Procedure Note Naveed Palma MD - 09/07/2025 CLINICAL INDICATION: Left upper and lower extremity weakness with ?seizure-like activity? TECHNIQUE: Head CTA: Axial images were obtained through the head during contrastbolus injection and multiplanar MIP images were created. Neck CTA: Axial images were obtained through the neck during boluscontrast injection and multiplanar reformatted and MIP images werecreated. 60 mL of Omnipaque 350 were administered intravenously. Total DLP (Dose-Length Product): 1419.50 mGy.cm (accession [id number]),1419.50 mGy.cm (accession [id number]). Please note: The reported valuerepresents the total of one or more individual components during the CTacquisition on this date and at this time, and as such, the same value mayappear in more than one CT report depending on the interpreting/reportingphysicians. COMPARISON: Concurrently performed head CT FINDINGS: Neck CTA: Diagnostic Quality: Adequate Aorta and Great Vessel Origins: There is a common origin of thebrachiocephalic and left common carotid arteries. There is no significantstenosis of the origins of the great arteries of the neck. Right Cervical Carotid System: The right common carotid artery and itsorigin are patent. There is no significant atherosclerotic plaque at thecarotid bifurcation. There is a 0% stenosis at the bifurcation by NASCETcriteria. The right internal carotid artery demonstrates a normal coursein the cervical region. There is no evidence of dissection orpseudoaneurysm of the right common and internal carotid arteries. Left Cervical Carotid System: The left common carotid artery and itsorigin are patent. There is trace calcified atherosclerotic plaque at thecarotid bifurcation. There is a 0% stenosis at the bifurcation by NASCETcriteria. The left internal carotid artery demonstrates a normal course inthe cervical region. There is no evidence of dissection or pseudoaneurysmof the left common and internal carotid arteries. Vertebral arteries: The origins appear patent. Small focus of calcificplaque at the origin of the right vertebral artery without significantstenosis. The left vertebral artery is congenitally diminutive. There isno evidence of a dissection, pseudoaneurysm, or significant stenosis ofthe vertebral arteries. Other Findings: Mild multilevel degenerative changes of the cervical spinewithout evidence of high-grade osseous spinal canal or neuroforaminalnarrowing. Minimal mucosal thickening in the inferior left maxillarysinus. Head CTA: Diagnostic Quality: Venous contamination. Vertebrobasilar System: Congenitally diminutive left intradural vertebralartery. Minimal atherosclerotic plaque without significant stenosisinvolving the right intradural vertebral artery. The basilar artery andits major branches are within normal limits. There is no aneurysm. Carotid Arteries: Right ICA: Predominantly calcified atherosclerotic plaque involving thecavernous ICA without significant stenosis. Left ICA: Predominantly calcified atherosclerotic plaque involving the andsupraclinoid ICA without significant stenosis. Other Findings: There is no aneurysm of either internal carotid artery. [facility] [place] and Major Peripheral Branches: There is no significantstenosis or occlusion. There is no aneurysm. Hypoplastic right A1. Fetalorigin of the right REAL TIME ANALYST. Other Findings: None. IMPRESSION: Neck CTA: No significant stenosis is present within the cervical carotid andvertebral systems. Head CTA: No significant intracranial arterial stenosis or aneurysm is present. CRITICAL RESULT: No. COMMUNICATION: Per this written report. By electronically signing this report, I, the attending physician, attconnieat I have personally reviewed the images/data for the aboveexamination(s) and agree with the final edited report. Drafted by Freddy Molina DO on 09/07/2025 3:51 PM Final report signed by Naveed Palma MD on 09/07/2025 5:12 PM us Tanvir Monroy MD IMG CT PROCEDURES Final Re sult * Troponin T, High Sensitivity, 2 Hour, Plasma (09/07/2025 2:51 PM EDT) Troponin T, High Sensitivity, 2 Hour 14 <19 ng/L 09/07/2025 3:36 PM EDT [facility] Blood Venous blood specimen / Unknown Venipuncture / Unknown 09/07/2025 2:51 PM EDT 09/07/2025 3:01 PM EDT us Christopher Meyer MD LAB BLOOD ORDERABLES Final Result [facility] [address] [place] [address] * Lactic acid, venous (09/07/2025 2:51 PM EDT) [facility] Lactate, Venous, Whole Blood 1.5 0.5 - 2.2 mmol/L LAB HEMATOLOGY METHOD 09/07/2025 3:03 PM EDT [facility] Blood Venous blood specimen / Unknown Venipuncture / Unknown 09/07/2025 2:51 PM EDT 09/07/2025 3:01 PM EDT Tanvir Monroy MD LAB BLOOD ORDERABLES Final Result Performing Organization Address City/[facility]/ZIP Co de Phone Number [facility] [address] [place] [address] * Prolactin (09/07/2025 2:51 PM EDT) [facility] Prolactin, Serum 3.5 3.4 - 15.2 ng/mL 09/07/2025 4:25 PM EDT [facility] Blood Venous blood specimen / Unknown Venipuncture / Unknown 09/07/2025 2:51 PM EDT 09/07/2025 3:41 PM EDT Narrative [facility] - 09/07/2025 4:25 PM EDT Performed by Gise[employer] electrochemiluminescent immunoassay which is traceable to the Prolactin 3rd IRP (WHO 84/500). Results obtained with different test methods or kits cannot be used interchangeably. Tanvir Monroy MD LAB BLOOD ORDERABLES Final Result Performing Organization Address City/[facility]/ZIP Co de Phone Number [facility] [address] [place] [address] * ECG Adult (09/07/2025 1:07 PM EDT) [facility] EKG DIAGNOSIS CLASS Abnormal MUSE ECG Ventricular Rate 91 BPM MUSE ECG Atrial Rate 91 BPM MUSE ECG NH Interval 138 ms MUSE ECG QRSD Interval 92 ms MUSE ECG QT Interval 368 ms MUSE ECG QTC Interval 452 ms MUSE ECG P [place] 19 degrees MUSE ECG R [place] 8 degrees MUSE ECG T Wave [place] 15 degrees MUSE ECG Diagnosis Normal sinus rhythm MUSE ECG Diagnosis Possible Inferior infarct , age undetermined MUSE ECG Diagnosis Abnormal ECG MUSE ECG Diagnosis MUSE ECG Diagnosis Confirmed by Carlos Serra ([id number]) on 09/07/2025 1:09:36 PM MUSE ECG 09/07/2025 1:07 PM EDT 09/07/2025 1:09 PM EDT Christopher Meyer MD ECG ORDERABLES Final Resul t MUSE ECG * ED HIV 1/2 Antibody/Antigen Screen w/Reflex to HIV 1/2 Differentiation (09/07/2025 12:51 PM EDT) [facility] HIV 1 & 2 Antibody/Antigen Screen Non Reactive Non Reactive 09/07/2025 2:08 PM EDT [facility] Comment:Screening for HIV 1 & 2 antibodies, and P24 antigen is NONREACTIVE. No confirmatory testing is required. Blood Venous blood specimen / Unknown Venipuncture / Unknown 09/07/2025 12:51 PM EDT 09/07/2025 1:24 PM EDT Christopher Meyer MD LAB BLOOD ORDERABLES Final Result Performing Organization Address City/[facility]/ZIP Co de Phone Number [facility] [address] [place] [address] * Troponin now and 120 min (09/07/2025 12:51 PM EDT) [facility] Troponin T, High Sensitivity, 0 Hour 16 <19 ng/L 09/07/2025 1:48 PM EDT [facility] Blood Venous blood specimen / Unknown Venipuncture / Unknown 09/07/2025 12:51 PM EDT 09/07/2025 12:59 PM EDT Christopher Meyer MD LAB BLOOD ORDERABLES Final Result [facility] [address] [place] [address] * Hepatitis C Antibody - ED (09/07/2025 12:51 PM EDT) [facility] Hepatitis C Antibody Negative Negative 09/07/2025 2:07 PM EDT [facility] Blood Venous blood specimen / Unknown Venipuncture / Unknown 09/07/2025 12:51 PM EDT 09/07/2025 1:25 PM EDT us Christopher Meyer MD LAB BLOOD ORDERABLES Final Result [facility] [address] [place] [address] * (ABNORMAL) CBC w/diff (09/07/2025 12:51 PM EDT) Pathologist [facility] WBC Count 5.76 3.70 - 10.30 10*3/uL LAB HEMATOLOGY METHOD 09/07/2025 1:02 PM EDT [facility] RBC Count 5.21 4.60 - 6.10 10*6/uL LAB HEMATOLOGY METHOD 09/07/2025 1:02 PM EDT [facility] HGB 15.0 13.7 - 17.5 g/dL LAB HEMATOLOGY METHOD 09/07/2025 1:02 PM EDT [facility] HCT 43.0 40.0 - 51.0 % LAB HEMATOLOGY METHOD 09/07/2025 1:02 PM EDT [facility] Platelet Count 215 155 - 369 10*3/uL LAB HEMATOLOGY METHOD 09/07/2025 1:02 PM EDT [facility] MCV 83 79 - 98 fL LAB HEMATOLOGY METHOD 09/07/2025 1:02 PM EDT [facility] MCH 28.8 26.0 - 32.0 pg LAB HEMATOLOGY METHOD 09/07/2025 1:02 PM EDT [facility] MCHC 34.9 30.7 - 35.5 g/dL LAB HEMATOLOGY METHOD 09/07/2025 1:02 PM EDT [facility] RDW 12.5 11.5 - 14.5 % LAB HEMATOLOGY METHOD 09/07/2025 1:02 PM EDT [facility] MPV 10.5 8.8 - 12.5 fL LAB HEMATOLOGY METHOD 09/07/2025 1:02 PM EDT [facility] nRBC 0.0 <=0.0 per 100 WBCs LAB HEMATOLOGY METHOD 09/07/2025 1:02 PM EDT [facility] Differential Type Automated LAB HEMATOLOGY METHOD 09/07/2025 1:02 PM EDT [facility] Neutrophils % 73 % LAB HEMATOLOGY METHOD 09/07/2025 1:02 PM EDT [facility] Lymphocytes % 19 % LAB HEMATOLOGY METHOD 09/07/2025 1:02 PM EDT [facility] Monocytes % 6 % LAB HEMATOLOGY METHOD 09/07/2025 1:02 PM EDT [facility] Eosinophils % 1 % LAB HEMATOLOGY METHOD 09/07/2025 1:02 PM EDT [facility] Basophils % 1 % LAB HEMATOLOGY METHOD 09/07/2025 1:02 PM EDT [facility] Immature Granulocytes % 0 % LAB HEMATOLOGY METHOD 09/07/2025 1:02 PM EDT [facility] Neutrophils Absolute 4.24 1.60 - 6.10 10*3/uL LAB HEMATOLOGY METHOD 09/07/2025 1:02 PM EDT [facility] Lymphocytes Absolute 1.07(L) 1.20 - 3.90 10*3/uL LAB HEMATOLOGY METHOD 09/07/2025 1:02 PM EDT [facility] Monocytes Absolute 0.35 0.30 - 0.90 10*3/uL LAB HEMATOLOGY METHOD 09/07/2025 1:02 PM EDT [facility] Eosinophils Absolute 0.06 0.00 - 0.50 10*3/uL LAB HEMATOLOGY METHOD 09/07/2025 1:02 PM EDT [facility] Basophils Absolute 0.03 0.00 - 0.10 10*3/uL LAB HEMATOLOGY METHOD 09/07/2025 1:02 PM EDT [facility] Immature Granulocytes Absolute 0.01 0.00 - 0.06 10*3/uL LAB HEMATOLOGY METHOD 09/07/2025 1:02 PM EDT [facility] Blood Venous blood specimen / Unknown Venipuncture / Unknown 09/07/2025 12:51 PM EDT 09/07/2025 12:59 PM EDT [facility] - 09/07/2025 1:02 PM EDT Therapeutic decision making should be based on absolute values, rather than percentages. us Christopher Meyer MD LAB BLOOD ORDERABLES Final Result [facility] [address] [place] [address] * Magnesium (09/07/2025 12:51 PM EDT) Magnesium, Plasma 1.9 1.9 - 2.4 mg/dL 09/07/2025 1:48 PM EDT [facility] Blood Venous blood specimen / Unknown Venipuncture / Unknown 09/07/2025 12:51 PM EDT 09/07/2025 12:59 PM EDT Christopher Meyer MD LAB BLOOD ORDERABLES Final Result Performing Organization Address [facility]/ZIP Co de Phone Number [facility] [address] [place] [address] * (ABNORMAL) CMP (09/07/2025 12:51 PM EDT) Glucose, Plasma 521(H) 74 - 99 mg/dL 09/07/2025 1:48 PM EDT [facility] BUN, Plasma 15 7 - 21 mg/dL 09/07/2025 1:48 PM EDT [facility] Creatinine, Plasma 0.73 0.70 - 1.20 mg/dL 09/07/2025 1:48 PM EDT [facility] BUN/Creatinine Ratio 21 09/07/2025 1:48 PM EDT [facility] Sodium, Plasma 132(L) 136 - 145 mmol/L 09/07/2025 1:48 PM EDT [facility] Potassium, Plasma 4.5 3.6 - 4.9 mmol/L 09/07/2025 1:48 PM EDT [facility] Chloride, Plasma 97 97 - 107 mmol/L 09/07/2025 1:48 PM EDT [facility] CO2, Plasma 22 22 - 29 mmol/L 09/07/2025 1:48 PM EDT [facility] Anion Gap 13 6 - 16 mmol/L 09/07/2025 1:48 PM EDT [facility] Total Calcium, Plasma 9.2 8.9 - 10.2 mg/dL 09/07/2025 1:48 PM EDT [facility] Total Protein 7.0 6.3 - 7.9 g/dL 09/07/2025 1:48 PM EDT [facility] Albumin, Plasma 4.3 3.5 - 5.2 g/dL 09/07/2025 1:48 PM EDT [facility] AST, Plasma 19 10 - 50 U/L 09/07/2025 1:48 PM EDT [facility] ALT, Plasma 18 10 - 50 U/L 09/07/2025 1:48 PM EDT [facility] Alkaline Phosphatase, Plasma 87 40 - 115 U/L 09/07/2025 1:48 PM EDT [facility] Total Bilirubin, Plasma 0.7 0.2 - 1.1 mg/dL 09/07/2025 1:48 PM EDT [facility] eGFRcr 118.7 mL/min/1.7 3m*2 09/07/2025 1:48 PM EDT [facility] Comment:Reported eGFRcr in m L/min/1.73m2 is based the CKD-EPI 2020 equation that does not use a race coefficient. Blood Venous blood specimen / Unknown Venipuncture / Unknown 09/07/2025 12:51 PM EDT 09/07/2025 12:59 PM EDT us Christopher Meyer MD LAB BLOOD ORDERABLES Final Result Performing Organization Address City/State/[facility] Co de Phone Number [facility] [address] [place] [address] * CT NEURO OUTSIDE IMAGES (09/05/2025 10:03 AM EDT) Anatomical Region Laterality Modality Computed Tomogra phy 09/05/2025 10:0 3 AM EDT us External Provider IMG CT PROCEDURES Edited Resul t - Final from Last 3 Months Insurance [facility] Care Teams [place] Tribunal Member Relationship Specialty Start Date End Date Breanna Loera DO [address] [place] [address] PCP - General 09/07/25
--- OUTSIDE RECORDS SUMMARY | 2025-11-07 10:51 | XMS_ITS | Encounter Summary ---
Author Organization [place] [address] Care Team Providers Care Tin Assorter Name Role Phone Unavailable Primary Care Provider Unavailabl e Reason for Visit * Reason Onset Date Comments Reschedule 09/28/2025 Encounter Details Date Type Department Care Team (Late st Contact Info) Description 09/28/2025 Telephone [facility] Diabetes [place] [address] [phone] Brian Doherty MD [address] [place] [address] Reschedule Social History Tobacco Use Types Packs/Day Years Used Date Smoking Tobacco: Never Smokeless Tobacco: Never Alcohol Use Standard Drinks/Week Comments Never 0 (1 standard drink = 0.6 oz pur e alcohol) Sex and Gender Information Value Date Recorded Sex Assigned at Not on file Legal Sex Male 9:35 AM EDT Gender Identity Not on file Sexual Orientation Not on file documented as of this encounter Miscellaneous Notes * Telephone Encounter - Aarti Ortiz MA - 09/28/2025 8:18 AM EST Noted, no labs to review. Pt has not been seen in 2 years. * Telephone Encounter - Thania Patel - 09/28/2025 8:17 AM EST cancelled appointment 09/28/25 with due to illness and rescheduled for 10/08/25 documented in this encounter Plan of Treatment Not on file documented as of this encounter Visit Diagnoses Not on filedocumented in this encounter
--- OUTSIDE RECORDS SUMMARY | 2025-11-07 10:51 | XMS_ITS | Clinical Summary ---
Author Organization [facility] Diabetes [facility] Address [address] [facility] [address] [place] [address] Phone Care Team Providers Care Multimedia Artist Name Role Phone Unavailable Primary Care Provider [...] 3 Active Blood-Glucose Sensor (DEXCOM G7 SENSOR) [facility] Device 1 Each by [facility].(Non-Drug; Combo Route) route every 10 days. 3 Each 3 Active ONETOUCH VERIO TEST STRIPS [facility] StripIndication s:Type 2 diabetes mellitus with hyperglycemia, with long-term current use of insulin ([facility]) Use to test blood sugars up to 3 times daily. E11.65 100 Each 11 3 Active Lancets [facility] MiscIndications :Type 2 diabetes mellitus with hyperglycemia, with long-term current use of insulin (HCC) Use to test blood sugars up to 3 times daily. E11.65 100 Each 3 Active Active Problems Problem Noted Date Diagnosed Date Type 2 diabetes mellitus wit h hyperglycemia, with long-term current use of insulin 11/05/2023 ASCVD (arteriosclerotic cardiovascular disease) 11/05/2023 Hypertension associated with type 2 diabetes denny litus 11/05/2023 Hyperlipidemia associated with type 2 diabetes m john 11/05/2023 Encounters Date Type Department Care Team Description 10/05/2025 Telephone [facility] [address] [facility] [address] [place] [phone] Brian Doherty MD Other 09/28/2025 Telephone [facility] [address] [facility] [address] [place] [phone] Brian Doherty MD Reschedule from Last 3 Months Medical History Medical History Date Comments Diabetes [...] 2 - PCV) 2005 Hemoglobin A1c 05/06/2024 11/05/2023, 11/30/2021 COVID-19 Vaccine (3 - 2024-2 6 season) 2025 05/07/2021, 04/11/2021 Influenza Vaccine (#1) 2025 12/25/2017 [...] # SEP OFFICE 11/05/2023 1:49 PM EST Brian Doherty MD POINT OF CARE TEST ORDERABLES Final Result SEP OFFICE from Last 3 Months or Most Recently Relevant to Health Maintenance Insurance PPO
--- OUTSIDE RECORDS SUMMARY | 2025-11-07 10:51 | XMS_ITS | Clinical Summary ---
Author Organization [facility] Address [address] [place] [address] Care Team Providers Care Prepared Foods Service Team Member Name Role Phone AdBreanna choi Primary Care Provider [phone] Allergies No known active allergies Medications B-D [...] each 3 2 Active Continuous Blood Gluc [employer] (Dexcom G6 [employer]) device 1 each Continuous. 1 each 2 [...] Active Active Problems No known active problems Encounters Date Type Department Care Team Description 09/15/2025 4:54 PM EDT - 09/15/2025 11:59 PM EDT Hospital Encounter [facility] [place] [address] [facility] [address] [facility] [address] [place] [address] Jordan Cummins Jr., MD Unstable right ankle Discharge Disposition: Home or Self Care 09/15/2025 Refill [facility] ENDO[facility] [address] [place] [address] Mery Cano MD Type 2 diabetes mellitus with hyperglycemia, with long-term current use of insulin 09/15/2025 Travel from Last 3 Months Family History Medical History Relation Name Comments [...] Health Maintenance Due Date Last Done Comments DIABETIC EYE EXAM 1996 DIABETIC FOOT EXAM 1996 URINE MICROALBUMIN-CREATININE RATIO (uACR) 1996 TDAP/TD VACCINES (2 - Tdap) 05/12/2000 05/11/2000 Hepatitis B (2 of 3 - 3-dose series) 06/08/200004/26 Pneumococcal Vaccine 0-49 (1 of 2 - PCV) 2005 ANNUAL PHYSICAL 11/30/2021 HEMOGLOBIN A1C 05/06/2024 11/05/2023, 11/30/2021 INFLUENZA VACCINE 06/26/2025 12/25/2017 HEPATITIS C SCREENING Completed 09/07/2025 Procedures Procedure Name Priority Date/Time Associated Diagnosis Comments MRI ANKLE RIGHT WO CONTRAST Routine 09/15/2025 5:44 PM EDT Unstable right ankle POCT GLYCOSYLATED HEMOGLOBIN (HGB A1C) Routine 11/30/2021 9:10 AM EST Type 2 diabetes mellitus with hyperglycemia, with long-term current use of insulin from Last 3 Months or Most Recently Relevant to Health Maintenance Results * MRI Ankle Right Without Contrast [...] [place] 09/21/2025 11:55 AM EDT Workstation ID: [id number] Narrative 09/21/2025 11:55 AM EDT MRI ANKLE [...] of acute osseous abnormality. Electronically Signed: Nico Celena 09/21/2025 11:55 AM EDT Workstation ID: [id number] Jordan Cummins Jr., MD IM MRI ORDERABLES Silva l Result * POC Glycosylated Hemoglobin (Hb A1C) (11/30/2021 9:10 AM EST) Hemoglobin A1C 10.8 % [facility] Lot Number [id number] [facility] Expiration Date 08-08-23 [facility] Blood 11/30/2021 9:10 AM EST Mery Cano MD POINT OF CARE TEST ORDERABLES F inal Result [facility]
[address] [phone] from Last 3 Months or Most Recently Relevant to Health Maintenance Insurance [employer] Care Teams Prepared Foods Service Team Member Relationship Specialty Start Date End Date Breanna Loera DO [address] [place] [address] PCP - General Family Medicine 11/30/21
--- OUTSIDE RECORDS SUMMARY | 2025-11-07 10:51 | XMS_ITS | Encounter Summary ---
Author Organization [facility] Address [address] [place] [address] Care Team Providers Care Pest Control Worker Helper Name Role Phone Breanna Loera Primary Care Provider [phone] Encounter Details Date Type Department Care Team (Late st Contact Info) Description 09/05/2025 Orders Only External Location [address] [place] [address] Provider, External Social History Tobacco Use Types Packs/Day Years Used Date Smoking Tobacco: Never Assessed Sex and Gender Information Value Date Recorded Sex Assigned at Not on file Legal Sex Male 8:46 PM EDT Gender Identity Not on file Sexual Orientation Not on file documented as of this encounter Functional Status * Calculated C-SSRS Risk Score (Lifetime/Recent) Answer Date of Assessment Author No Risk Indicated 09/07/2025 1:03 PM EDT Bessy Lucas RN * Question Answer Date of Assessment Author 1. Wish to be (Past 1 Month) No 025 1:03 PM EDT Bessy Lucas RN 2. Non-Specific Active Suici sarah Thoughts (Past 1 Month) No 09/07/2025 1:03 PM EDT Bessy Lucas RN 6. Suicidal Behavior (Lifetime) No 1:03 PM EDT Bessy Lucas RN documented as of this encounter Plan of Treatment Not on file documented as of this encounter Procedures Procedure Name Priority Date/Time Associated Diagnosis Comments CT NEURO OUTSIDE IMAGES 09/05/2025 10:03 AM EDT documented in this encounter Results * CT NEURO OUTSIDE IMAGES (09/05/2025 10:03 AM EDT) Anatomical Region Laterality Modality Computed Tomogra phy 09/05/2025 10:0 3 AM EDT us External Provider IMG CT PROCEDURES Edited Resul t - Final documented in this encounter Visit Diagnoses Not on filedocumented in this encounter Care Teams Pest Control Worker Helper Relationship Specialty Start Date End Date Breanna Loera DO [address] [place] [address] PCP - General 09/07/25 documented as of this encounter
--- OUTSIDE RECORDS SUMMARY | 2025-11-07 10:52 | XMS_ITS | Encounter Summary ---
Author Organization [place] [address] Care Team Providers Care Set Up Operator Tool Name Role Phone Unavailable Primary Care Provider Unavailabl e Reason for Visit * Reason Onset Date Comments Other 10/05/2025 Encounter Details Date Type Department Care Team (Late st Contact Info) Description 10/05/[address] [facility] [place] [address] [phone] Brian Doherty MD [address] [place] [address] Other Social History Tobacco Use Types Packs/Day Years [...] encounter Miscellaneous Notes * Telephone Encounter - Shay Pickering - 10/05/2025 10:39 AM EST LM on for patient about upcoming appointment on 10/08 due to no show rate and inquired if they have any barriers contributing to the high rate. If pt has any barriers, route the encounter to Shayy to handle documented in this encounter Plan of Treatment Not on file documented as of this encounter Visit Diagnoses Not on filedocumented in this encounter
--- OUTSIDE RECORDS SUMMARY | 2025-11-07 10:52 | XMS_ITS | Encounter Summary ---
Author Organization [facility] Address [address] [place] [address] Care Team Providers Care Amusement Park Ride Mechanic Name Role Phone Breanna Loera Primary Care Provider [phone] Encounter Details Date Type Department Care Team (Latest Contact Info) Description 09/15/2025 Travel Social History Tobacco Use Types Packs/Day Years [...] on file documented as of this encounter Plan of Treatment Not on file documented as of this encounter Visit Diagnoses Not on filedocumented in this encounter Care Teams Amusement Park Ride Mechanic Relationship Specialty Start Date End Date Breanna Loera DO [facility] [place] [address] PCP - General Family Medicine 11/30/21 documented as of this encounter
--- NOTE | 2025-11-07 10:57 | XR_ITS ---
PROCEDURE INFORMATION: Exam: XR Right Foot Exam date and time: 11/07/2025 11:23 AM Age: 40 years old Clinical indication: Other: Monroe on foot TECHNIQUE: Imaging protocol: Radiologic exam of the right foot. Views: 3 or more views. COMPARISON: No relevant prior studies available. FINDINGS: Bones/joints: Normal. Soft tissues: Normal. IMPRESSION: No acute findings.
--- NOTE | 2025-11-07 10:57 | XR_ITS ---
PROCEDURE INFORMATION: Exam: XR Left Foot Exam date and time: 11/07/2025 11:23 AM Age: 40 years old Clinical indication: Other: Monroe; Additional info: Monroe on foot TECHNIQUE: Imaging protocol: Radiologic exam of the left foot. Views: 3 or more views. COMPARISON: No relevant prior studies available. FINDINGS: Bones/joints: Normal. Soft tissues: Normal. IMPRESSION: No acute findings.
[2025-11-07] MEDS: VANCOMYCIN/WATER FOR INJ (PEG) 1.75 GM/350 ML PIGGYBACK IV (11:13)
--- NOTE | 2025-11-07 11:19 | ED_ITS ---
<Statement entered by Cherie Vyas MD - 11/07/25 15:43> I was consulted by the HOANG, and we discussed the complexity of the problems being addressed. I approved the treatment and management plan for this patient's care in the emergency department, thus performing a substantive portion of the medical decision making. Cherie Vyas MD, MORIAH, FACEP Discharge Plan Disposition Patient Disposition: Xfer Short-Term Hosp Condition: Good Prescriptions Prescriptions: No Action nitroglycerin 0.4 mg tablet, sublingual 0.4 mg sublingual ONCE atorvastatin 80 mg tablet See Rx Instructions .ROUTE .COMPLEX Qty: 90 3RF Dose Instruction: TAKE 1 TABLET BY MOUTH ONCE DAILY AT BEDTIME Rx Instructions: TAKE 1 TABLET BY MOUTH ONCE DAILY AT BEDTIME irbesartan 75 mg tablet See Rx Instructions .ROUTE .COMPLEX Qty: 90 3RF Dose Instruction: Take 1 tablet by mouth once daily Rx Instructions: Take 1 tablet by mouth once daily bisoprolol fumarate 10 mg tablet 10 mg PO DAILY Qty: 90 1RF clopidogrel 75 mg tablet See Rx Instructions .ROUTE .COMPLEX Qty: 90 3RF Dose Instruction: Take 1 tablet by mouth once daily Rx Instructions: Take 1 tablet by mouth once daily insulin glargine [Lantus U-100 Insulin] 100 unit/mL solution 45 unit SQ HS aspirin 81 mg tablet,chewable 81 mg PO DAILY Referrals Follow up/Referrals: Breanna Loera [Primary Care Provider, Medical] - See instructions Clinical Impressions Clinical Impression: Burn, Cellulitis of foot Stand Alone Forms Stand Alone Forms: Transfer Record - ED Instructions Patient Instructions: Lucas Print Language Print Language: Latvian Discharge ED Provider: Cherie Vyas General Adult HPI <Syed Bolanos ([facility]), PLATE WORKER HELPER - Last Filed: 11/07/25 13:26> General Chief complaint: Burn/Smoke Inhalation Stated complaint: burned bottom of feet, diabetic Time Seen by Provider: 11/07/25 10:49 Mode of Arrival: Ambulatory Source of Information: Patient Description of Symptoms (Recalled from ER Triage Doc. by RN): Patient states he went to sleep the night of 11/03/25 with his feet too close to a heater and now has lucas on the toes of both feet. Patient states that he called PCP on Sunday11/04/25 and they prescribed Silvadene cream, which he has been applying twice daily. Patient with blisters to toes of right foot and redness and peeling skin and blisters to pad of foot and toes of left foot. History of Present Illness HPI narrative: 40-year-old male presents for lucas to bilateral feet. Patient states Sunday night into Sunday he was sleeping with his feet next to a heater and when he woke up his noticed he had lucas to both feet and toes. Patient states he has history of diabetes and neuropathy and did not feel the lucas. Patient states he called PCP on Sunday morning was given Silvadene cream to apply twice a day. Patient states he went shopping yesterday with his and this morning noticed the redness increasing on the top of his foot extending up into his foot. Related Data Home Medications ?Medication ?Instructions ?Recorded ?Confirmed nitroglycerin 0.4 mg sublingual 0.4 mg sublingual ONCE . 06/26/23 05/13/25 tablet insulin glargine 100 unit/mL 45 unit SQ HS Diabetes 05/13/25 subcutaneous solution (Lantus U-100 Insulin) aspirin 81 mg chewable tablet 81 mg PO DAILY . 3 05/13/25 Previous Rx's ?Medication ?Instructions ?Recorded atorvastatin 80 mg tablet See Rx Instructions .Route 0 02/12/25 .COMPLEX #90 tabs irbesartan 75 mg tablet See Rx Instructions .Route 0 02/19/25 .COMPLEX #90 tabs bisoprolol fumarate 10 mg tablet 10 mg PO DAILY . #90 tabs 09/09/25 clopidogrel 75 mg tablet See Rx Instructions .Route 1 01/05/25 .COMPLEX #90 tabs Allergies Allergy/AdvReac Type Severity Reaction Status Date / Time No Known Allergies Allergy Verified 05/13/25 09:03 [facility] <Syed Bolanos ([facility]), PLATE WORKER HELPER - Last Filed: 11/07/25 13:26> [facility] Disclaimer: The information contained in this section may have been updated after the patient was seen, as this information can be updated by other users. Medical History Abnormal ECG Fatigue Abnormal result of cardiovascular function study Diabetes Coronary artery disease Surgical History History of coronary artery stent placement Stented coronary artery History of cardiac cath History of tympanoplasty of right ear History of tonsillectomy Family History Mother Diabetes Father Heart attack Social History Smoking Status: Never smoker alcohol intake: never substance use type: denies use current occupational status: employed Travel in the last 8 weeks?: None household members: spouse housing: house lives independently: Yes marital status: number of children: 0 education level: high school current occupation: Patient care team coordinator scheduler at [employer] diet: diabetic emigdio/hindu: Scientologist Have you lived/traveled outside US in past 30 days?: No Contact w/someone who lives/traveled outside US past 30 days?: No Exposure to someone with infectious disease in past 14 days?: No Do you have a fever (greater than 100.4 F or 38 C)?: No Have you tested positive for COVID-19?: No Exposed to someone with COVID-19 in past 14 days?: No Do you have a sore throat?: No Do you have a cough?: No Do you have any weakness?: No Do you have any diarrhea?: No Are you experiencing any unusual bleeding?: No Do you have any muscle aches/pain?: No Do you have any abdominal pain?: No Are you experiencing loss of taste or smell?: No Other Medical History Have you received the Flu Vaccine for this season: No Have you received the Pneumonia Vaccine: No <Syed Bolanos ([facility]), PLATE WORKER HELPER - Last Filed: 11/07/25 13:26> ROS Obtained: Yes Systems reviewed as appropriate & no additional complaints except as documented Integumentary/Breasts Skin/Breast: Reports system reviewed and no additional complaints, except as documented, Reports as per HPI and Reports other (Burn) Physical Exam <Syed Bolanos ([facility]), PLATE WORKER HELPER - Last Filed: 11/07/25 13:26> General General appearance: alert and in no apparent distress Head Head exam: atraumatic Neck Neck exam: Present normal inspection Respiratory Respiratory exam: Present normal lung sounds bilaterally Cardiovascular Cardiovascular exam: Present regular rate Expanded Lower Extremity Exam Left: Top foot image: 2 1. redness Bottom foot image: 2 1. Blister 2. Blister 3. Blister 4. Blister 5. No blister 6. Blister Partial-thickness burn 7. Blister Partial-thickness burn 8. Blister Partial-thickness 9. Blister Partial-thickness 10. Blister Partial-thickness 11. Blister Partial-thickness 12. Blister 13. Blister Neurovascular/Tendon exam: Present normal capillary refill and sensory deficit Neurological Exam Neurological exam: Present alert and oriented X3 Skin Skin exam: Present warm Medical Decision Making <Syed Bolanos ([facility]), PLATE WORKER HELPER - Last Filed: 11/07/25 13:26> Medical Records Medical records reviewed: Yes I reviewed the patient's medical records. Screening: Per USPSTF and CDC recommendations, given the prevalence of disease in our region, it is our hospital?s policy to screen for HIV and viral Hepatitis for all patients aged 18 and over and those with ongoing risk factors. Kin Inquiry Pt receiving controlled substance: No Kin was queried for this patient: No Vital Signs: 11/07/25 10:46 11/07/25 11:00 11/07/25 11:30 Temperature 97.9 F Temperature Source Oral Pulse Rate 103 H 97 H Pulse Rate [Right Brachial] 101 H Respiratory Rate 16 18 18 Blood Pressure 126/83 116/73 Blood Pressure [Right Arm] 142/87 H Blood Pressure Mean 90 83 Blood Pressure Mean [Right Arm] 105 Blood Pressure Source Blood Pressure Source [Right Arm] Automatic Cuff Blood Pressure Position Blood Pressure Position [Right Arm] Sitting 02 Sat by Pulse Oximetry 100 95 100 Oxygen Delivery Method Room Air 11/07/25 12:00 11/07/25 12:30 11/07/25 13:00 Temperature Temperature Source Pulse Rate 97 H 101 H 98 H Pulse Rate [Right Brachial] Respiratory Rate Blood Pressure 117/70 119/73 130/74 Blood Pressure [Right Arm] Blood Pressure Mean Blood Pressure Mean [Right Arm] Blood Pressure Source Blood Pressure Source [Right Arm] Blood Pressure Position Blood Pressure Position [Right Arm] 02 Sat by Pulse Oximetry 99 99 99 Oxygen Delivery Method 11/07/25 13:45 Temperature 98.3 F Temperature Source Oral Pulse Rate 96 H Pulse Rate [Right Brachial] Respiratory Rate 18 Blood Pressure 130/74 Blood Pressure [Right Arm] Blood Pressure Mean Blood Pressure Mean [Right Arm] Blood Pressure Source Automatic Cuff Blood Pressure Source [Right Arm] Blood Pressure Position Sitting Blood Pressure Position [Right Arm] 02 Sat by Pulse Oximetry Oxygen Delivery Method Room Air Lab Data Lab results reviewed: Yes I reviewed the patient's lab results. Lab Results 11/07/25 11:00: WBC 11.8 H, RBC 4.69, Hgb 13.6 L, Hct 39.7 L, MCV 84.6, MCH 29.0, MCHC 34.3, RDW 12.8, Plt Count 211, MPV 10.3, Neut % (Auto) 75.4, Lymph % (Auto) 12.0, Bradford % (Auto) 8.2, Eos % (Auto) 3.8, Baso % (Auto) 0.3, Neut # (Auto) 8.9 H, Lymph # (Auto) 1.4, Bradford # (Auto) 1.0, Eos # (Auto) 0.5 H, Baso # (Auto) 0.0, ESR 49 H, Sodium 141, Potassium 4.2, Chloride 101, Carbon Dioxide 29, Anion Gap 15.2 H, BUN 13, Creatinine 1.00, Estimated Creat Clear 143, Estimated GFR 83, Est GFR ( Amer) 101, Glucose 170 H, Calcium 9.1, Total Bilirubin 1.0, AST 17, ALT 16, Alkaline Phosphatase 75, C-Reactive Protein 199.1 H, Total Protein 7.6, Albumin 4.4, Globulin 3.2, Albumin/Globulin Ratio 1.4 11/07/25 11:00 11/07/25 11:00 Orders (Tests/Meds): ED MEDICATIONS Discontinued Medications Generic Name Dose Route Start Last Admin Trade Name Oscarq PRN Reason Stop Dose Admin Vancomycin/PEG/NADA/Lysine/Water 1.75 gm in 350 mls @ 175 mls/hr 11/07/25 11:15 11/07/25 13:36 Vancomycin 1.75gm/350ml (Peg) Premix IV 11/07/25 13:14 Infused ONCE ONE Infusion Piperacillin Sod/Tazobactam 100 mls @ 200 mls/hr 11/07/25 11:15 Sod 4.5 gm/ Sodium Chloride IV 11/17/25 11:14 Q6H EVITA Miscellaneous 1 each 11/07/25 11:00 Vancomycin Consult Request NOTAPPLIC 12/07/25 10:59 CONSULT PHARMACY [facility] ORDERS Category Date Time Status Foot XR left minimum 3 views [XR foot LT min 3V] Stat Exams 11/07/25 10:57 Completed Foot XR right minimum 3 views [XR foot RT min 3V] Stat Exams 11/07/25 10:57 Completed CBC w/Auto Diff [Complete Blood Count Auto Diff] Stat Lab 11/07/25 11:00 Completed CMP [Comprehensive Metabolic Panel] Stat Lab 11/07/25 11:00 Completed CRP [C-Reactive Protein] Stat Lab 11/07/25 11:00 Completed ESR [Erythrocyte Sedimentation Rate] Stat Lab 11/07/25 11:00 Completed Blood Culture Stat Micro 11/07/25 11:06 Received Medical Decision Narrative: In summary patient is a 40-year-old male who presents to the emergency department for evaluation of lucas to bilateral feet. Patient is hemodynamically stable upon arrival, afebrile. On physical exam partial- thickness lucas to bilateral feet and toes with redness extending to the top of the foot. Differential diagnosis includes partial-thickness burn/full-thickness due to neuropathy unable to assess if burn is full-thickness. Initial workup will be conducted with labs, x-ray, antibiotics. Initial inventions include IV antibiotics, labs. Initial workup reviewed by nv labs unremarkable. Upon repeat evaluation due to unable to assess full-thickness of burn due to neuropathy and diabetes. Given this patient appropriate for discharge to a tertiary burn unit. Dr. Collins at [facility] excepted patient to the ER. Spoke with Dr. Breaux with plastics pictures of foot sent for him to review, states he will see the patient once patient arrives. <Cherie Vyas MD - Last Filed: 11/07/25 15:45> Vital Signs: 11/07/25 10:46 11/07/25 11:00 11/07/25 11:30 Temperature 97.9 F Temperature Source Oral Pulse Rate 103 H 97 H Pulse Rate [Right Brachial] 101 H Respiratory Rate 16 18 18 Blood Pressure 126/83 116/73 Blood Pressure [Right Arm] 142/87 H Blood Pressure Mean 90 83 Blood Pressure Mean [Right Arm] 105 Blood Pressure Source Blood Pressure Source [Right Arm] Automatic Cuff Blood Pressure Position Blood Pressure Position [Right Arm] Sitting 02 Sat by Pulse Oximetry 100 95 100 Oxygen Delivery Method Room Air 11/07/25 12:00 11/07/25 12:30 11/07/25 13:00 Temperature Temperature Source Pulse Rate 97 H 101 H 98 H Pulse Rate [Right Brachial] Respiratory Rate Blood Pressure 117/70 119/73 130/74 Blood Pressure [Right Arm] Blood Pressure Mean Blood Pressure Mean [Right Arm] Blood Pressure Source Blood Pressure Source [Right Arm] Blood Pressure Position Blood Pressure Position [Right Arm] 02 Sat by Pulse Oximetry 99 99 99 Oxygen Delivery Method 11/07/25 13:45 Temperature 98.3 F Temperature Source Oral Pulse Rate 96 H Pulse Rate [Right Brachial] Respiratory Rate 18 Blood Pressure 130/74 Blood Pressure [Right Arm] Blood Pressure Mean Blood Pressure Mean [Right Arm] Blood Pressure Source Automatic Cuff Blood Pressure Source [Right Arm] Blood Pressure Position Sitting Blood Pressure Position [Right Arm] 02 Sat by Pulse Oximetry Oxygen Delivery Method Room Air Lab Data Lab Results 11/07/25 11:00: WBC 11.8 H, RBC 4.69, Hgb 13.6 L, Hct 39.7 L, MCV 84.6, MCH 29.0, MCHC 34.3, RDW 12.8, Plt Count 211, MPV 10.3, Neut % (Auto) 75.4, Lymph % (Auto) 12.0, Bradford % (Auto) 8.2, Eos % (Auto) 3.8, Baso % (Auto) 0.3, Neut # (Auto) 8.9 H, Lymph # (Auto) 1.4, Bradford # (Auto) 1.0, Eos # (Auto) 0.5 H, Baso # (Auto) 0.0, ESR 49 H, Sodium 141, Potassium 4.2, Chloride 101, Carbon Dioxide 29, Anion Gap 15.2 H, BUN 13, Creatinine 1.00, Estimated Creat Clear 143, Estimated GFR 83, Est GFR ( Amer) 101, Glucose 170 H, Calcium 9.1, Total Bilirubin 1.0, AST 17, ALT 16, Alkaline Phosphatase 75, C-Reactive Protein 199.1 H, Total Protein 7.6, Albumin 4.4, Globulin 3.2, Albumin/Globulin Ratio 1.4 Orders (Tests/Meds): ED MEDICATIONS Discontinued Medications Generic Name Dose Route Start Last Admin Trade Name Freq PRN Reason Stop Dose Admin Vancomycin/PEG/NADA/Lysine/Water 1.75 gm in 350 mls @ 175 mls/hr 11/07/25 11:15 11/07/25 13:36 Vancomycin 1.75gm/350ml (Peg) Premix IV 11/07/25 13:14 Infused ONCE ONE Infusion Piperacillin Sod/Tazobactam 100 mls @ 200 mls/hr 11/07/25 11:15 Sod 4.5 gm/ Sodium Chloride IV 11/17/25 11:14 Q6H [facility] Miscellaneous 1 each 11/07/25 11:00 Vancomycin Consult Request NOTAPPLIC 12/07/25 10:59 CONSULT PHARMACY [facility] ORDERS Category Date Time Status Foot XR left minimum 3 views [XR foot LT min 3V] Stat Exams 11/07/25 10:57 Completed Foot XR right minimum 3 views [XR foot RT min 3V] Stat Exams 11/07/25 10:57 Completed CBC w/Auto Diff [Complete Blood Count Auto Diff] Stat Lab 11/07/25 11:00 Completed CMP [Comprehensive Metabolic Panel] Stat Lab 11/07/25 11:00 Completed CRP [C-Reactive Protein] Stat Lab 11/07/25 11:00 Completed ESR [Erythrocyte Sedimentation Rate] Stat Lab 11/07/25 11:00 Completed Blood Culture Stat Micro 11/07/25 11:06 Received Procedures <Syed Bolanos ([facility]), PLATE WORKER HELPER - Last Filed: 11/07/25 13:26> Miscellaneous Procedure Procedure Performed: Bilateral feet cleaned with Hibiclens blisters on the right foot ruptured with an 18-gauge needle cleaned with Hibiclens pictures taken Critical Care <Syed Bolanos ([facility]), PLATE WORKER HELPER - Last Filed: 11/07/25 13:26> Critical Care Time Critical Care Time: No <Cherie Vyas MD - Last Filed: 11/07/25 15:45> Critical Care Time Critical Care Time: Yes Attestation: On 11/07/25, the high probability of a clinically significant, sudden or life threatening deterioration of the following system(s) required my full and direct attention, intervention and personal management. The time I documented below is in addition to time spent performing reported procedures but includes the following listed in this critical care notation. Total Time Total Critical Care Time: 35
[2025-11-07 11:23] LABS: Hematocrit 39.7 % (42.0-52.0); Hemoglobin 13.6 g/dL (14.1-18.0); Immature Granulocytes % 0.3 %; Mean Corpuscular HGB Conc 34.3 g/dL (31.8-35.4); Mean Corpuscular Hemoglobin 29.0 pg (27.0-31.2); Mean Corpuscular Volume 84.6 fl (80-94); Nucleated Red Blood Cells % 0 %; Platelet Count 211 K/mm3 (142-424); Red Blood Count 4.69 M/mm3 (4.60-6.20); Red Cell Distribution Width-SD 39.3 fL; White Blood Count 11.8 K/mm3 (4.8-10.8)
[2025-11-07 11:28] LABS: Albumin Level 4.4 g/dl (3.5-5.0); Chloride 101 mmol/L (98-107); Potassium 4.2 mmoL/L (3.5-5.1); Sodium 141 mmol/L (136-145)
--- NOTE | 2025-11-07 11:29 | PC.NURSE ---
xr at bedside
[2025-11-07 11:31] LABS: Alanine Aminotransferase 16 U/L (12-78); Albumin/Globulin Ratio 1.4 (1.1-1.8); Alkaline Phosphatase 75 U/L (38-126); Anion Gap 15.2 mEq/L (5-15); Aspartate Amino Transferase 17 U/L (17-59); Bilirubin,Total 1.0 mg/dl (0.2-1.3); Blood Urea Nitrogen 13 mg/dl (9-20); Calcium 9.1 mg/dl (8.4-10.2); Carbon Dioxide 29 mmol/L (22.0-30.0); Creatinine Clearance Estimated 143 mL/min (50-200); Creatinine,Serum 1.00 mg/dl (0.66-1.25); Estimated Glomerular Filt Rate 83 ml/min (>60); GFR (African American) 101 ML/MIN (>60); Globulin 3.2 g/dL (1.3-3.2); Glucose 170 mg/dl (74-100); Total Protein,Serum 7.6 g/dl (6.3-8.2)
[2025-11-07 11:37] LABS: C-Reactive Protein 199.1 mg/L (0-4)
--- NOTE | 2025-11-07 12:03 | PC.NURSE ---
called [facility] per Dr Vyas for pt consult/tranfer due to bi lat full thickness lucas to feet
--- NOTE | 2025-11-07 12:08 | PC.NURSE ---
raissa act speaking with [facility] for transfer
--- NOTE | 2025-11-07 12:10 | PC.NURSE ---
Syed on phone with [facility] at this time
[2025-11-07 16:37] LABS: Acinetobacter calcoaceticus-ba Not Detected; Bacteroides fragilis Not Detected; Candida auris Not Detected; Candida glabrata Not Detected; Enterobacterales Not Detected; Enterococcus faecalis Not Detected; Enterococcus faecium Not Detected; Klebsiella aerogenes Not Detected; Klebsiella pneumoniae grp Not Detected; Proteus spp. Not Detected; Salmonella spp. Not Detected; Serratia marcescens Not Detected; Staphylococcus epidermidis Not Detected; Staphylococcus lugdunensis Not Detected; Staphylococcus spp. Not Detected; Stenotrophomonas maltophilia Not Detected; Streptococcus agalactiae(GrpB) Not Detected; Streptococcus pyogenes Group A Not Detected; Streptococcus spp. Not Detected
[2025-11-07 16:37] LABS: Acinetobacter calcoaceticus-ba Not Detected; Bacteroides fragilis Not Detected; Candida auris Not Detected; Candida glabrata Not Detected; Enterobacterales Not Detected; Enterococcus faecalis Not Detected; Enterococcus faecium Not Detected; Klebsiella aerogenes Not Detected; Klebsiella pneumoniae grp Not Detected; Proteus spp. Not Detected; Salmonella spp. Not Detected; Serratia marcescens Not Detected; Staphylococcus epidermidis Not Detected; Staphylococcus lugdunensis Not Detected; Staphylococcus spp. Not Detected; Stenotrophomonas maltophilia Not Detected; Streptococcus agalactiae(GrpB) Not Detected; Streptococcus pyogenes Group A Not Detected; Streptococcus spp. Not Detected
== END 2025-11-07 13:59 | disposition short-term general hospital (02) ==
PROVIDERS: Nurse Practitioner Family; Emergency Provider Student in an Organized Health Care Education/Training Program; PCP Family Medicine
DX: T25.221A Burn of second degree of right foot, initial encounter (principal); T25.222A Burn of second degree of left foot, initial encounter; E11.40 Type 2 diabetes mellitus with diabetic neuropathy, unspecified; L03.115 Cellulitis of right lower limb; L03.116 Cellulitis of left lower limb; Z79.4 Long term (current) use of insulin; X19.XXXA Contact with other heat and hot substances, initial encounter
CPT/HCPCS: 73630; 80053; 85025; 85651; 86140; 87040; 87154; 96365; 96366; 99285; J3375